=== PATIENT | female | born 1945 | race Caucasian/White ===

== ENCOUNTER → 2018-09-30 13:12 | Outpatient (CLI) | payer OTHER, SELFPAY ==
--- NOTE | 2018-09-30 | DI.MRI.S_ITS ---
PROCEDURE: MR KNEE LT WO CON INDICATIONS: UNILATERAL OSTEOARTHRITIS LEFT KNEE TECHNIQUE: Noncontrast sagittal PD fast spin echo and T2 fast spin echo with fat saturation, sagittal 3-D FLASH with fat saturation; coronal T1 spin echo and PD fast spin echo with fat saturation, and axial PD fast spin echo with fat saturation through the knee. COMPARISON: [facility], CR, XR KNEE ARTHRITIC SERIES LT, 03/09/2018, 8:26. [facility], CR, XR KNEE ARTHRITIC SERIES LT, 09/11/2018, 8:25. FINDINGS: Image quality: Excellent. Menisci: There is medial meniscal extrusion and complex tear involving the body of the medial meniscus. There is intrasubstance degeneration of the posterior horn the medial meniscus. The lateral meniscus demonstrates normal morphology and internal signal. The meniscal root ligaments appear intact. Cruciate ligaments: The anterior and posterior cruciate ligaments appear intact. Medial structures: The medial collateral ligament appears intact. The posterior oblique ligament, semimembranosus tendon insertions, oblique popliteal ligament, and meniscocapsular junction appear intact. Visualized portions of the pes anserinus tendons appear normal. No abnormal bursal fluid. Lateral structures: The lateral collateral ligament, long and short heads of the biceps femoris tendon appear intact. The popliteus tendon appears normal; the popliteofibular ligament appears intact. The posterosuperior and anteroinferior popliteomeniscal fascicles appear intact. The arcuate and fabellofibular ligaments appear intact, on either side of the lateral inferior geniculate artery. Iliotibial band appears normal. Anterior structures: The quadriceps and patellar tendons appear intact. Patellar alignment is normal. No femoral trochlear dysplasia or ventral trochlear prominence. No edema in the infrapatellar fat pad. Bones and cartilage: No bone marrow contusions or fractures. There is tricompartmental cartilage loss and significant degeneration, most pronounced in the medial and lateral femorotibial compartment. Mild reactive subchondral edema in the medial femoral condyle and medial tibial plateau likely secondary to [id number]. Joint space: There is physiologic knee joint fluid. No Hernandez's cyst. Normal appearing synovial plicae are incidentally noted. IMPRESSION: 1. Medial meniscal extrusion and complex tear of the body of the medial meniscus. 2. Tricompartmental cartilage loss, most pronounced in the medial femorotibial compartment. There is reactive subchondral edema in the medial femoral condyle and medial tibial plateau secondary to bone on bone. Dictated by: Setfan Barry M.D. on 09/30/2018 at 15:13 Approved by: Stefan Barry M.D. on 10/01/2018 at 10:01
== END ==
PROVIDERS: Visit Provider Orthopaedic Surgery
DX: S83.232A Complex tear of medial meniscus, current injury, left knee, initial encounter (principal); M17.12 Unilateral primary osteoarthritis, left knee; R60.0 Localized edema
CPT/HCPCS: 73721

== ENCOUNTER 2019-01-06 14:30 | Outpatient (RCR) | payer OTHER, SELFPAY ==
--- NOTE | 2018-10-22 15:05 | PT.OIE ---
Current Diagnoses Cystocele, midline (10/22/18) Past Surgical History Status post hysterectomy Provider Visit Care Team Role Provider Type Helio Chawla MD Primary Care Provider Non-Staff Specialty: Internal Medicine Address: [address] [place], [address] Email: Melissa Joseph MD Attending Provider Non-Staff Specialty: [employer] SI[employer] Address: [address] [place] [address], [id number] Email: Physical Therapy Initial Evaluation PT-OP-A Visit Information Start: 10/22/18 07:29 Freq: Status: Active Protocol: Document 10/22/18 09:45 AMB (Rec: 10/22/18 11:46 AMB [email or web address]) Out-Patient Physical Therapy Visit Information Visit Information Visit Type Initial Evaluation Visit Start Time 09:45 Visit Stop Time 10:30 Total Visit Minutes 45 Visit Number 1 PT-OP-B Current Condition Start: 10/22/18 07:29 Freq: Status: Active Protocol: Document 10/22/18 09:45 AMB (Rec: 10/22/18 11:46 AMB [email or web address]) Current Condition History of Current Condition Onset Date 2 years Current Complaints pelvic heaviness History of Current Condition Valerie had prolapse surgery in 2014 with vaginal hysterectomy . It worked well for a year or two, but then she was traveling around [place] and doing a lot of stairs, and felt the bulge come back. She tried a pessary but it didn't work for her. She is planning on having surgery in the summer, but is hoping to strengthen her pelvic floor so that she does not make her prolapse worse, and so that the surgery sticks better this go around. , vaginal deliveries with episiotomies, no symptoms with or soon after. Denies constipation, chronic cough. Personal Factors Other Personal Factors That May Effect History of back pain, takes Therapy/Recovery diuretic for blood pressure PT-OP-C Subjective Start: 10/22/18 07:29 Freq: Status: Active Protocol: Document 10/22/18 09:45 AMB (Rec: 10/22/18 11:46 AMB [email or web address]) Patient Questionnaires Pelvic Pain and Urgency/Frequency Patient Symptom Scale Pelvic Pain Score 8 PT-OP-I Pelvic Floor Start: 10/22/18 07:29 Freq: Status: Active Protocol: Document 10/22/18 09:45 AMB (Rec: 10/22/18 11:49 AMB [email or web address]) Pelvic Floor Assessment Urine Pelvic Floor Surgery Yes Urinary Symptoms Prolapse Falling Out Feeling/Heavy Other Leakage Causes Denies any leak issues Bowel Bowel Surgery No Bowel Movement Frequency 2x/day [place] Stool Chart Type 1-7 2 Pelvic Clock Pelvic Clock 12-3 Atrophy Pelvic Clock 3-6 Atrophy Pelvic Clock 6-9 Atrophy Pelvic Clock 9-12 Atrophy Prolapse Cystocele Grade 3 Rectocele Grade 1 Perineal Descent Resting Present Bearing Present SEMG (uV) Baseline 3.5 Quick Contraction 15 Recruitment Pattern Poor/Slow SEMG Stability of Rest Good Contraction Ability Voluntary Contraction Weak Voluntary Relaxation Weak Manual Muscle Testing Left 2 Manual Muscle Testing Right 2 Manual Muscle Testing Anterior 1 Manual Muscle Testing Posterior 3 Comments Pelvic Floor Comments Pt tends to cocontract her abdominal muscles with her pelvic floor. Difficult time keeping sensor in for biofeedback makes it less likely biofeedback muscular activity was accurate. PT-OP-Q Treatments Start: 10/22/18 07:29 Freq: Status: Active Protocol: Document 10/22/18 09:45 AMB (Rec: 10/22/18 13:31 AMB [email or web address]) Neuro Re-Education Treatment Other Activities 1 Details long holds/quick flicks Reps/Duration 2x10 ea hooklying Comments instruction with sEMG on using correct muscles, facilitating lift PT-OP-T Assessment and Plan Start: 10/22/18 07:29 Freq: Status: Active Protocol: Document 10/22/18 09:45 AMB (Rec: 10/22/18 13:45 AMB [email or web address]) Physical Therapy Assessment Rehab Potential Rehabilitation Potential Good Evaluation Complexity Number of Personal Factors/Comorbidities 1-2 Number of Body Systems Impaired 1-2 Clinical Presentation at Evaluation Stable Impairments Impairments Functional Activities Strength Goals Two Impairment pelvic floor heaviness Short Term Goal (STG) Valerie will walk for 15 minutes without a subjective feeling of pelvic heaviness. STG Duration 5 weeks Detention Goal (LTG) Valerie will be independent with a HEP to manage her cystocele . One Impairment pelvic floor strength Short Term Goal (STG) Valerie will increase her pelvic floor strength to 4/5 as tested in supine. STG Duration 5 weeks Manager Party Goal (LTG) Valerie will be able to contract her pelvic floor while in standing without compensating with her abdominals. LTG Duration 10 weeks Assessment Summary Assessment Valerie attends physical therapy with an increase in symptoms of prolapse. She has tried a pessary but did not find it helpful, and is going to be having another surgery in the summer, but is hoping to learn how to avoid making the prolapse worse given that she will be walking around [place] and that is what she thought made it worse after the last surgery. She does have weakness in her pelvic floor and had both a difficult time engaging levator ani as well as isolating the pelvic floor from her abdominals. She will benefit from physical therapy to improve her strength and reduce her symptoms from her cystocele. Physical Therapy Plan Frequency and Duration Frequency of Treatment 1x/Week Duration of Treatment 10 weeks Plan of Care Start Date 10/22/18 Plan of Care End Date 12/31/18 Therapeutic Interventions Therapeutic Interventions Home Exercise Program Manual Therapy Neuromuscular Re-education Self-Care/Home Management Therapeutic Activities Therapeutic Exercises Modalities Biofeedback Electric Stimulation Next Visit Focus/Plan Next Note Type Treatment Note Next Visit Plan Progress pelvic floor isolation in supine before progressing to more functional activity
--- NOTE | 2018-10-22 15:07 | PT.OPPOC ---
Current Diagnoses Cystocele, midline (10/22/18) Provider Visit Care Team Role Provider Type Helio Chawla MD Primary Care Provider Non-Staff Specialty: Internal Medicine Address: [address] [facility], [place], [address] Email: Melissa Joseph MD Attending Provider Non-Staff Specialty: STRIPPING [employer] Address: [address], [address] Email: Plan Of Care PT-OP-T Assessment and Plan Start: 10/22/18 07:29 Freq: Status: Active Protocol: Document 10/22/18 09:45 AMB (Rec: 10/22/18 13:45 AMB [email or web address]) Physical Therapy Assessment Rehab Potential Rehabilitation Potential Good Evaluation Complexity Number of Personal Factors/Comorbidities 1-2 Number of Body Systems Impaired 1-2 Clinical Presentation at Evaluation Stable Impairments Impairments Functional Activities Strength Goals Two Impairment pelvic floor heaviness Short Term Goal (STG) Valerie will walk for 15 minutes without a subjective feeling of pelvic heaviness. STG Duration 5 weeks Transfer Clerk Goal (LTG) Valerie will be independent with a HEP to manage her cystocele . One Impairment pelvic floor strength Short Term Goal (STG) Valerie will increase her pelvic floor strength to 4/5 as tested in supine. STG Duration 5 weeks Snf Goal (LTG) Valerie will be able to contract her pelvic floor while in standing without compensating with her abdominals. LTG Duration 10 weeks Assessment Summary Assessment Valerie attends physical therapy with an increase in symptoms of prolapse. She has tried a pessary but did not find it helpful, and is going to be having another surgery in the summer, but is hoping to learn how to avoid making the prolapse worse given that she will be walking around [place] and that is what she thought made it worse after the last surgery. She does have weakness in her pelvic floor and had both a difficult time engaging levator ani as well as isolating the pelvic floor from her abdominals. She will benefit from physical therapy to improve her strength and reduce her symptoms from her cystocele. Physical Therapy Plan Frequency and Duration Frequency of Treatment 1x/Week Duration of Treatment 10 weeks Plan of Care Start Date 10/22/18 Plan of Care End Date 12/31/18 Therapeutic Interventions Therapeutic Interventions Home Exercise Program Manual Therapy Neuromuscular Re-education Self-Care/Home Management Therapeutic Activities Therapeutic Exercises Modalities Biofeedback Electric Stimulation Next Visit Focus/Plan Next Note Type Treatment Note Next Visit Plan Progress pelvic floor isolation in supine before progressing to more functional activity Plan of Care Dates Plan of Care Start Date 10/22/18 Plan of Care End Date 12/31/18 Please Sign and Return: I have reviewed this Plan of Care and certify that the skilled therapy services above are required to meet the patient?s needs. Physician Signature Date Printed Name and Credentials Clinical Instructor Signature Printed Name and Credentials
--- NOTE | 2018-10-30 12:16 | PT.OTN ---
Current Diagnoses Cystocele, midline (10/30/18) Physical Therapy Treatment Note PT-OP-A Visit Information Start: 10/22/18 07:29 Freq: Status: Active Protocol: Document 10/30/18 10:00 BS (Rec: 10/30/18 12:09 BS [email or web address]) Out-Patient Physical Therapy Visit Information Visit Information Visit Type Treatment Note Visit Start Time 09:50 Visit Stop Time 10:35 Total Visit Minutes 45 Visit Number 2 PT-OP-B Current Condition Start: 10/22/18 07:29 Freq: Status: Active Protocol: Document 10/22/18 09:45 AMB (Rec: 10/22/18 11:46 AMB [email or web address]) Current Condition History of Current Condition Onset Date 2 years Current Complaints pelvic heaviness History of Current Condition Valerie had prolapse surgery in 2014 with vaginal hysterectomy . It worked well for a year or two, but then she was traveling around [place] and doing a lot of stairs, and felt the bulge come back. She tried a pessary but it didn't work for her. She is planning on having surgery in the summer, but is hoping to strengthen her pelvic floor so that she does not make her prolapse worse, and so that the surgery sticks better this go around. , vaginal deliveries with episiotomies, no symptoms with or soon after. Denies constipation, chronic cough. Personal Factors Other Personal Factors That May Effect History of back pain, takes Therapy/Recovery diurectic for blood pressure PT-OP-C Subjective Start: 10/22/18 07:29 Freq: Status: Active Protocol: Document 10/30/18 10:00 BS (Rec: 10/30/18 12:09 BS [email or web address]) OP-PT Subjective Patient Comments Patient Comments Pt reports she has been compliant with HEP and is focusing on isolating pelvic floor. PT-OP-I Pelvic Floor Start: 10/22/18 07:29 Freq: Status: Active Protocol: Document 10/22/18 09:45 AMB (Rec: 10/22/18 11:49 AMB [email or web address]) Pelvic Floor Assessment Urine Pelvic Floor Surgery Yes Urinary Symptoms Prolapse Falling Out Feeling/Heavy Other Leakage Causes Denies any leak issues Bowel Bowel Surgery No Bowel Movement Frequency 2x/day [place] Stool Chart Type 1-7 2 Pelvic Clock Pelvic Clock 12-3 Atrophy Pelvic Clock 3-6 Atrophy Pelvic Clock 6-9 Atrophy Pelvic Clock 9-12 Atrophy Prolapse Cystocele Grade 3 Rectocele Grade 1 Perineal Descent Resting Present Bearing Present SEMG (uV) Baseline 3.5 Quick Contraction 15 Recruitment Pattern Poor/Slow SEMG Stability of Rest Good Contraction Ability Voluntary Contraction Weak Voluntary Relaxation Weak Manual Muscle Testing Left 2 Manual Muscle Testing Right 2 Manual Muscle Testing Anterior 1 Manual Muscle Testing Posterior 3 Comments Pelvic Floor Comments Pt tends to cocontract her abdominal muscles with her pelvic floor. Difficult time keeping sensor in for biofeedback makes it less likely biofeedback muscular activitiy was accurate. PT-OP-Q Treatments Start: 10/22/18 07:29 Freq: Status: Active Protocol: Document 10/30/18 10:00 BS (Rec: 10/30/18 12:09 BS [email or web address]) Therapeutic Exercises Supine Exercises 2 Supine Exercise Name Supine clamshell Resistance #3 band Reps/Minutes x15 Comments hooklying. VCs for pelvic floor contraction 1 Supine Exercise Name Hip adduction squeeze with small ball Reps/Minutes x15 wtih 3-5 sec hold. Comments Hooklying. VCs for pelvic floor contraction Neuro Re-Education Treatment Other Activities 1 Details quick flicks, 5W 10R, 10W 10R Reps/Duration 2x10 ea hooklying Comments sEMG with visual feedback for pelvic floor contraction. VCs to reduce abdominal tension. PT-OP-T Assessment and Plan Start: 10/22/18 07:29 Freq: Status: Active Protocol: Document 10/30/18 10:00 BS (Rec: 10/30/18 12:09 BS [email or web address]) Physical Therapy Assessment Assessment Summary Assessment Valerie reports that she has been compliant with HEP for pelvic floor strengthening. She tolerated s EMG today and core stabilization exercises in supine. Prolonged supine position increased LBP toward end of sesion. Physical Therapy Plan Next Visit Focus/Plan Next Note Type Treatment Note Next Visit Plan Pelvic floor progression in quadruped position.
--- NOTE | 2018-11-06 15:10 | PT.OTN ---
Current Diagnoses Cystocele, midline (11/06/18) Physical Therapy Treatment Note PT-OP-A Visit Information Start: 10/22/18 07:29 Freq: Status: Active Protocol: Document 11/06/18 09:49 BS (Rec: 11/06/18 09:55 BS [id number]) Out-Patient Physical Therapy Visit Information Visit Information Visit Type Treatment Note Visit Start Time 09:45 Visit Stop Time 10:30 Total Visit Minutes 45 Visit Number 3 PT-OP-B Current Condition Start: 10/22/18 07:29 Freq: Status: Active Protocol: Document 10/22/18 09:45 AMB (Rec: 10/22/18 11:46 AMB [email or web address]) Current Condition History of Current Condition Onset Date 2 years Current Complaints pelvic heaviness History of Current Condition Valerie had prolapse surgery in 2014 with vaginal hysterectomy . It worked well for a year or two, but then she was traveling around [place] and doing a lot of stairs, and felt the bulge come back. She tried a pessary but it didn't work for her. She is planning on having surgery in the summer, but is hoping to strengthen her pelvic floor so that she does not make her prolapse worse, and so that the surgery sticks better this go around. , vaginal deliveries with episiotomies, no symptoms with or soon after. Denies constipation, chronic cough. Personal Factors Other Personal Factors That May Effect History of back pain, takes Therapy/Recovery diurectic for blood pressure PT-OP-C Subjective Start: 10/22/18 07:29 Freq: Status: Active Protocol: Document 11/06/18 09:49 BS (Rec: 11/06/18 09:55 BS [id number]) OP-PT Subjective Patient Comments Patient Comments Pt has been doing her exercises, needs a new band but bought a ball for hip adduction squeezes. Still having pelvic heaviness especially with standing. PT-OP-I Pelvic Floor Start: 10/22/18 07:29 Freq: Status: Active Protocol: Document 10/22/18 09:45 AMB (Rec: 10/22/18 11:49 AMB [email or web address]) Pelvic Floor Assessment Urine Pelvic Floor Surgery Yes Urinary Symptoms Prolapse Falling Out Feeling/Heavy Other Leakage Causes Denies any leak issues Bowel Bowel Surgery No Bowel Movement Frequency 2x/day [place] Stool Chart Type 1-7 2 Pelvic Clock Pelvic Clock 12-3 Atrophy Pelvic Clock 3-6 Atrophy Pelvic Clock 6-9 Atrophy Pelvic Clock 9-12 Atrophy Prolapse Cystocele Grade 3 Rectocele Grade 1 Perineal Descent Resting Present Bearing Present SEMG (uV) Baseline 3.5 Quick Contraction 15 Recruitment Pattern Poor/Slow SEMG Stability of Rest Good Contraction Ability Voluntary Contraction Weak Voluntary Relaxation Weak Manual Muscle Testing Left 2 Manual Muscle Testing Right 2 Manual Muscle Testing Anterior 1 Manual Muscle Testing Posterior 3 Comments Pelvic Floor Comments Pt tends to cocontract her abdominal muscles with her pelvic floor. Difficult time keeping sensor in for biofeedback makes it less likely biofeedback muscular activitiy was accurate. PT-OP-Q Treatments Start: 10/22/18 07:29 Freq: Status: Active Protocol: Document 11/06/18 09:49 BS (Rec: 11/06/18 09:55 BS [id number]) Therapeutic Exercises Sitting Exercises 1 Sitting Exercise Name Roll in/out Resistance #3 band, small red ball Reps/Minutes x20 each Comments VCs pelvic floor contraction Neuro Re-Education Treatment Other Activities 1 Details quick flicks, 5W 10R, 10W 10R Reps/Duration x10 ea hooklying Comments sEMG with visual feedback for pelvic floor contraction. PT-OP-T Assessment and Plan Start: 10/22/18 07:29 Freq: Status: Active Protocol: Document 11/06/18 09:49 BS (Rec: 11/06/18 12:54 BS [email or web address]) Physical Therapy Assessment Assessment Summary Assessment Continuation of sEMG and pelvic floor strengthening, progressed to sitting position today edge of mat. Pt will be seen for 2 more visits before vacation to [facility]. Physical Therapy Plan Next Visit Focus/Plan Next Note Type Treatment Note Next Visit Plan Progress pelvic floor strengthening as able to standing and dynamic exercises with lifting in preparation for vacation.
--- NOTE | 2018-11-13 11:58 | PT.OTN ---
Current Diagnoses Cystocele, midline (11/13/18) Physical Therapy Treatment Note PT-OP-A Visit Information Start: 10/22/18 07:29 Freq: Status: Active Protocol: Document 11/13/18 10:35 BS (Rec: 11/13/18 11:39 BS [id number]) Out-Patient Physical Therapy Visit Information Visit Information Visit Type Treatment Note Visit Start Time 09:45 Visit Stop Time 10:30 Total Visit Minutes 45 Visit Number 4 PT-OP-B Current Condition Start: 10/22/18 07:29 Freq: Status: Active Protocol: Document 10/22/18 09:45 AMB (Rec: 10/22/18 11:46 AMB [email or web address]) Current Condition History of Current Condition Onset Date 2 years Current Complaints pelvic heaviness History of Current Condition Valerie had prolapse surgery in 2014 with vaginal hysterectomy . It worked well for a year or two, but then she was traveling around [place] and doing a lot of stairs, and felt the bulge come back. She tried a pessary but it didn't work for her. She is planning on having surgery in the summer, but is hoping to strengthen her pelvic floor so that she does not make her prolapse worse, and so that the surgery sticks better this go around. , vaginal deliveries with episiotomies, no symptoms with or soon after. Denies constipation, chronic cough. Personal Factors Other Personal Factors That May Effect History of back pain, takes Therapy/Recovery diurectic for blood pressure PT-OP-C Subjective Start: 10/22/18 07:29 Freq: Status: Active Protocol: Document 11/13/18 10:35 BS (Rec: 11/13/18 11:39 BS [id number]) OP-PT Subjective Patient Comments Patient Comments Everything is going well, I have been doing the exercises and paying more attention to engaging pelvic floor throughout day. PT-OP-I Pelvic Floor Start: 10/22/18 07:29 Freq: Status: Active Protocol: Document 10/22/18 09:45 AMB (Rec: 10/22/18 11:49 AMB [email or web address]) Pelvic Floor Assessment Urine Pelvic Floor Surgery Yes Urinary Symptoms Prolapse Falling Out Feeling/Heavy Other Leakage Causes Denies any leak issues Bowel Bowel Surgery No Bowel Movement Frequency 2x/day [place] Stool Chart Type 1-7 2 Pelvic Clock Pelvic Clock 12-3 Atrophy Pelvic Clock 3-6 Atrophy Pelvic Clock 6-9 Atrophy Pelvic Clock 9-12 Atrophy Prolapse Cystocele Grade 3 Rectocele Grade 1 Perineal Descent Resting Present Bearing Present SEMG (uV) Baseline 3.5 Quick Contraction 15 Recruitment Pattern Poor/Slow SEMG Stability of Rest Good Contraction Ability Voluntary Contraction Weak Voluntary Relaxation Weak Manual Muscle Testing Left 2 Manual Muscle Testing Right 2 Manual Muscle Testing Anterior 1 Manual Muscle Testing Posterior 3 Comments Pelvic Floor Comments Pt tends to cocontract her abdominal muscles with her pelvic floor. Difficult time keeping sensor in for biofeedback makes it less likely biofeedback muscular activitiy was accurate. PT-OP-Q Treatments Start: 10/22/18 07:29 Freq: Status: Active Protocol: Document 11/13/18 10:35 BS (Rec: 11/13/18 11:39 BS [id number]) Therapeutic Exercises Sitting Exercises 1 Sitting Exercise Name Roll in/out Resistance #3 band, small red ball Reps/Minutes x20 each Comments VCs pelvic floor contraction Standing Exercises 2 Standing Exercise Name Hip abduction Side bilateral Reps/Minutes x12 each Comments VCs pelvic floor contraction 1 Standing Exercise Name Mini Squats Reps/Minutes x10 Comments VCs pelvic floor contraction and correct form Neuro Re-Education Treatment Other Activities 1 Details quick flicks, 5W 10R, 10W 10R Reps/Duration x15 ea hooklying Comments sEMG with visual feedback for pelvic floor contraction. PT-OP-T Assessment and Plan Start: 10/22/18 07:29 Freq: Status: Active Protocol: Document 11/13/18 10:35 BS (Rec: 11/13/18 11:39 BS [id number]) Physical Therapy Assessment Assessment Summary Assessment Continued biofeedback for pelvic floor strengthening and neuromuscular re-education in sitting. Progressed to standing squats and hip abduction with pt reporting less feelings of heaviness with activation of pelvic floor. Pt has 1 visit remaining before vascation to [place]. Physical Therapy Plan Next Visit Focus/Plan Next Note Type Treatment Note Next Visit Plan Pt tolerated progression of pelvic floor exercises in standing. Add functional crate lifts next visit to mimic carrying of luggage.
--- NOTE | 2018-11-20 14:18 | PT.OTN ---
Current Diagnoses Cystocele, midline (11/20/18) Physical Therapy Treatment Note PT-OP-A Visit Information Start: 10/22/18 07:29 Freq: Status: Active Protocol: Document 11/20/18 10:35 BS (Rec: 11/20/18 09:51 BS [id number]) Out-Patient Physical Therapy Visit Information Visit Information Visit Type Treatment Note Visit Start Time 09:47 Visit Stop Time 10:30 Total Visit Minutes 43 Visit Number 5 PT-OP-B Current Condition Start: 10/22/18 07:29 Freq: Status: Active Protocol: Document 10/22/18 09:45 AMB (Rec: 10/22/18 11:46 AMB [email or web address]) Current Condition History of Current Condition Onset Date 2 years Current Complaints pelvic heaviness History of Current Condition Valerie had prolapse surgery in 2014 with vaginal hysterectomy . It worked well for a year or two, but then she was traveling around [place] and doing a lot of stairs, and felt the bulge come back. She tried a pessary but it didn't work for her. She is planning on having surgery in the summer, but is hoping to strengthen her pelvic floor so that she does not make her prolapse worse, and so that the surgery sticks better this go around. , vaginal deliveries with episiotomies, no symptoms with or soon after. Denies constipation, chronic cough. Personal Factors Other Personal Factors That May Effect History of back pain, takes Therapy/Recovery diurectic for blood pressure PT-OP-C Subjective Start: 10/22/18 07:29 Freq: Status: Active Protocol: Document 11/20/18 10:35 BS (Rec: 11/20/18 10:26 BS [id number]) OP-PT Subjective Patient Comments Patient Comments Pt reports she has been doing exercises and preparing for vacation to [place]. She feels confident with continuing exercises when on vacation. PT-OP-I Pelvic Floor Start: 10/22/18 07:29 Freq: Status: Active Protocol: Document 10/22/18 09:45 AMB (Rec: 10/22/18 11:49 AMB [email or web address]) Pelvic Floor Assessment Urine Pelvic Floor Surgery Yes Urinary Symptoms Prolapse Falling Out Feeling/Heavy Other Leakage Causes Denies any leak issues Bowel Bowel Surgery No Bowel Movement Frequency 2x/day [place] Stool Chart Type 1-7 2 Pelvic Clock Pelvic Clock 12-3 Atrophy Pelvic Clock 3-6 Atrophy Pelvic Clock 6-9 Atrophy Pelvic Clock 9-12 Atrophy Prolapse Cystocele Grade 3 Rectocele Grade 1 Perineal Descent Resting Present Bearing Present SEMG (uV) Baseline 3.5 Quick Contraction 15 Recruitment Pattern Poor/Slow SEMG Stability of Rest Good Contraction Ability Voluntary Contraction Weak Voluntary Relaxation Weak Manual Muscle Testing Left 2 Manual Muscle Testing Right 2 Manual Muscle Testing Anterior 1 Manual Muscle Testing Posterior 3 Comments Pelvic Floor Comments Pt tends to cocontract her abdominal muscles with her pelvic floor. Difficult time keeping sensor in for biofeedback makes it less likely biofeedback muscular activitiy was accurate. PT-OP-Q Treatments Start: 10/22/18 07:29 Freq: Status: Active Protocol: Document 11/20/18 10:35 BS (Rec: 11/20/18 10:26 BS [id number]) Therapeutic Exercises Sitting Exercises 1 Sitting Exercise Name Roll in Resistance small red ball Reps/Minutes x20 each Comments VCs pelvic floor contraction Standing Exercises 2 Standing Exercise Name Hip abduction Side bilateral Reps/Minutes x12 each Comments VCs pelvic floor contraction 1 Standing Exercise Name Mini Squats Equipment Used no weight Reps/Minutes x10 Comments VCs pelvic floor contraction and correct form Therapeutic Activity Therapeutic Activity 2 Name Crate Lift and Carry Reps/Minutes x5 Comments from ground to countertop. 10# pelvic floor contraction and TA bracing. 1 Name Crate Lift Reps/Minutes x10 each Comments 10#, 15# with pelvic floor contraction and TA bracing. From floor to waist level. PT-OP-T Assessment and Plan Start: 10/22/18 07:29 Freq: Status: Active Protocol: Document 11/20/18 10:35 BS (Rec: 11/20/18 10:26 BS [id number]) Physical Therapy Assessment Assessment Summary Assessment Session consisted of more functional lifting and carrying activities with pelvic floor contractions in preparation for vacation to [place]. She will have surgery in February for prolapse. Physical Therapy Plan Next Visit Focus/Plan Next Note Type Treatment Note Next Visit Plan Re-assess pelvic floor activation with biofeedback. Pt plans to schedule 1-2 visits after vacation just prior to surgery.
--- NOTE | 2018-11-27 11:01 | PT.OTN ---
Current Diagnoses Cystocele, midline (11/27/18) Physical Therapy Treatment Note PT-OP-A Visit Information Start: 10/22/18 07:29 Freq: Status: Active Protocol: Document 11/27/18 10:44 BS (Rec: 11/27/18 10:52 BS [email or web address]) Out-Patient Physical Therapy Visit Information Visit Information Visit Type Treatment Note Visit Start Time 09:45 Visit Stop Time 10:30 Total Visit Minutes 45 Visit Number 6 PT-OP-B Current Condition Start: 10/22/18 07:29 Freq: Status: Active Protocol: Document 10/22/18 09:45 AMB (Rec: 10/22/18 11:46 AMB [email or web address]) Current Condition History of Current Condition Onset Date 2 years Current Complaints pelvic heaviness History of Current Condition Valerie had prolapse surgery in 2014 with vaginal hysterectomy . It worked well for a year or two, but then she was traveling around [place] and doing a lot of stairs, and felt the bulge come back. She tried a pessary but it didn't work for her. She is planning on having surgery in the summer, but is hoping to strengthen her pelvic floor so that she does not make her prolapse worse, and so that the surgery sticks better this go around. , vaginal deliveries with episiotomies, no symptoms with or soon after. Denies constipation, chronic cough. Personal Factors Other Personal Factors That May Effect History of back pain, takes Therapy/Recovery diurectic for blood pressure PT-OP-C Subjective Start: 10/22/18 07:29 Freq: Status: Active Protocol: Document 11/27/18 10:44 BS (Rec: 11/27/18 10:52 BS [email or web address]) OP-PT Subjective Patient Comments Patient Comments Pt feels confident with pelvic floor exercises and is states she is more aware of doing them with functional daily activities. PT-OP-I Pelvic Floor Start: 10/22/18 07:29 Freq: Status: Active Protocol: Document 10/22/18 09:45 AMB (Rec: 10/22/18 11:49 AMB [email or web address]) Pelvic Floor Assessment Urine Pelvic Floor Surgery Yes Urinary Symptoms Prolapse Falling Out Feeling/Heavy Other Leakage Causes Denies any leak issues Bowel Bowel Surgery No Bowel Movement Frequency 2x/day [place] Stool Chart Type 1-7 2 Pelvic Clock Pelvic Clock 12-3 Atrophy Pelvic Clock 3-6 Atrophy Pelvic Clock 6-9 Atrophy Pelvic Clock 9-12 Atrophy Prolapse Cystocele Grade 3 Rectocele Grade 1 Perineal Descent Resting Present Bearing Present SEMG (uV) Baseline 3.5 Quick Contraction 15 Recruitment Pattern Poor/Slow SEMG Stability of Rest Good Contraction Ability Voluntary Contraction Weak Voluntary Relaxation Weak Manual Muscle Testing Left 2 Manual Muscle Testing Right 2 Manual Muscle Testing Anterior 1 Manual Muscle Testing Posterior 3 Comments Pelvic Floor Comments Pt tends to cocontract her abdominal muscles with her pelvic floor. Difficult time keeping sensor in for biofeedback makes it less likely biofeedback muscular activitiy was accurate. PT-OP-Q Treatments Start: 10/22/18 07:29 Freq: Status: Active Protocol: Document 11/27/18 10:44 BS (Rec: 11/27/18 10:52 BS [email or web address]) Therapeutic Exercises Sitting Exercises 2 Sitting Exercise Name Roll out Equipment Used #3 band Reps/Minutes x20 Comments Pelvic floor contractions 1 Sitting Exercise Name Roll in Resistance small red ball Reps/Minutes x20 each Comments VCs pelvic floor contraction Therapeutic Activity Therapeutic Activity 3 Name Step Up/down Reps/Minutes 4 step Comments Pelvic floor contractions, no UE support. 2 Name Crate Lift and Carry Reps/Minutes x5 Comments from ground to countertop. 10# pelvic floor contraction and TA bracing. 1 Name Crate Lift Reps/Minutes x10 each Comments 10# with pelvic floor contraction and TA bracing. From floor to waist level. Neuro Re-Education Treatment Other Activities 1 Details quick flicks, 5W 10R, 10W 10R Reps/Duration x15 ea hooklying Comments sEMG with visual feedback for pelvic floor contraction. PT-OP-T Assessment and Plan Start: 10/22/18 07:29 Freq: Status: Active Protocol: Document 11/27/18 10:44 BS (Rec: 11/27/18 10:52 BS [email or web address]) Physical Therapy Plan Next Visit Focus/Plan Next Note Type Treatment Note Next Visit Plan Pt is going on long vacation to [place] next week and plans to have 1 more visit when returning prior to surgery in February.
--- NOTE | 2019-01-06 16:00 | PT.OPPOC ---
Current Diagnoses Cystocele, midline (01/06/19) Provider Visit Care Team Role Provider Type Helio Chawla MD Primary Care Provider Non-Staff Specialty: Internal Medicine Address: [address] [place], [address] Email: Melissa Joseph MD Attending Provider Non-Staff Specialty: ARTISTS' BOOKING REPRESENTATIVE Address: [address], [address] Email: Plan Of Care PT-OP-T Assessment and Plan Start: 10/22/18 07:29 Freq: Status: Active Protocol: Document 01/06/19 14:30 AMB (Rec: 01/07/19 08:39 AMB [email or web address]) Physical Therapy Assessment Goals Two Impairment pelvic floor heaviness Short Term Goal (STG) Valerie will walk for 15 minutes without a subjective feeling of pelvic heaviness. STG Duration MET Fdc Goal (LTG) Valerie will be independent with a HEP to manage her cystocele . LTG Duration MET One Impairment pelvic floor strength Short Term Goal (STG) Valerie will increase her pelvic floor strength to 4/5 as tested in supine. STG Duration 5 weeks Fdc Goal (LTG) Valerie will be able to contract her pelvic floor while in standing without compensating with her abdominals. LTG Duration MET Assessment Summary Assessment Valerie now has a better understanding of how to contract her pelvic floor. Instructed her in importance of pressure management now and after surgery, importance of avoiding high pressure activities- straining sit ups, did encourage her in core stabilization exercises. Physical Therapy Plan Frequency and Duration Frequency of Treatment 1x/Week Duration of Treatment 1 week Plan of Care Start Date 01/06/19 Plan of Care End Date 01/13/19 Discharge Physical Therapy Discharge Reasons Goals Met Discharge Comments Pt is planning on having surgery in February. If she needs to return post-op she would need a new referral. Plan of Care Dates Plan of Care Start Date 01/06/19 Plan of Care End Date 01/13/19 Please Sign and Return: I have reviewed this Plan of Care and certify that the skilled therapy services above are required to meet the patient?s needs. Physician Signature Date Printed Name and Credentials Clinical Instructor Signature Printed Name and Credentials
--- NOTE | 2019-01-06 16:05 | PT.OTN ---
Current Diagnoses Cystocele, midline (01/06/19) Physical Therapy Treatment Note PT-OP-A Visit Information Start: 10/22/18 07:29 Freq: Status: Active Protocol: Document 01/06/19 14:30 AMB (Rec: 01/06/19 15:07 AMB [id number]) Out-Patient Physical Therapy Visit Information Visit Information Visit Type Treatment Note Visit Start Time 14:30 Visit Stop Time 15:15 Total Visit Minutes 45 Visit Number 7 PT-OP-B Current Condition Start: 10/22/18 07:29 Freq: Status: Active Protocol: Document 10/22/18 09:45 AMB (Rec: 10/22/18 11:46 AMB [email or web address]) Current Condition History of Current Condition Onset Date 2 years Current Complaints pelvic heaviness History of Current Condition Valerie had prolapse surgery in 2014 with vaginal hysterectomy . It worked well for a year or two, but then she was traveling around [place] and doing a lot of stairs, and felt the bulge come back. She tried a pessary but it didn't work for her. She is planning on having surgery in the summer, but is hoping to strengthen her pelvic floor so that she does not make her prolapse worse, and so that the surgery sticks better this go around. , vaginal deliveries with episiotomies, no symptoms with or soon after. Denies constipation, chronic cough. Personal Factors Other Personal Factors That May Effect History of back pain, takes Therapy/Recovery diurectic for blood pressure PT-OP-C Subjective Start: 10/22/18 07:29 Freq: Status: Active Protocol: Document 01/06/19 14:30 AMB (Rec: 01/06/19 15:07 AMB [id number]) OP-PT Subjective Patient Comments Patient Comments Pt returns from her trip to [facility]. PT-OP-I Pelvic Floor Start: 10/22/18 07:29 Freq: Status: Active Protocol: Document 10/22/18 09:45 AMB (Rec: 10/22/18 11:49 AMB [email or web address]) Pelvic Floor Assessment Urine Pelvic Floor Surgery Yes Urinary Symptoms Prolapse Falling Out Feeling/Heavy Other Leakage Causes Denies any leak issues Bowel Bowel Surgery No Bowel Movement Frequency 2x/day [place] Stool Chart Type 1-7 2 Pelvic Clock Pelvic Clock 12-3 Atrophy Pelvic Clock 3-6 Atrophy Pelvic Clock 6-9 Atrophy Pelvic Clock 9-12 Atrophy Prolapse Cystocele Grade 3 Rectocele Grade 1 Perineal Descent Resting Present Bearing Present SEMG (uV) Baseline 3.5 Quick Contraction 15 Recruitment Pattern Poor/Slow SEMG Stability of Rest Good Contraction Ability Voluntary Contraction Weak Voluntary Relaxation Weak Manual Muscle Testing Left 2 Manual Muscle Testing Right 2 Manual Muscle Testing Anterior 1 Manual Muscle Testing Posterior 3 Comments Pelvic Floor Comments Pt tends to cocontract her abdominal muscles with her pelvic floor. Difficult time keeping sensor in for biofeedback makes it less likely biofeedback muscular activitiy was accurate. PT-OP-Q Treatments Start: 10/22/18 07:29 Freq: Status: Active Protocol: Document 01/06/19 14:30 AMB (Rec: 01/07/19 08:39 AMB [email or web address]) Therapeutic Exercises Supine Exercises 3 Supine Exercise Name LTR Reps/Minutes 10 2 Supine Exercise Name supine march Reps/Minutes 10 Comments with TrA and pelvic floor 1 Supine Exercise Name supine 90-90 bilat Reps/Minutes 10 Neuro Re-Education Treatment Other Activities 1 Details quick flicks, 5W 10R, 10W 10R Reps/Duration x15 ea hooklying Comments sEMG with visual feedback for pelvic floor contraction. PT-OP-T Assessment and Plan Start: 10/22/18 07:29 Freq: Status: Active Protocol: Document 01/06/19 14:30 AMB (Rec: 01/07/19 08:39 AMB [email or web address]) Physical Therapy Assessment Goals Two Impairment pelvic floor heaviness Short Term Goal (STG) Valerie will walk for 15 minutes without a subjective feeling of pelvic heaviness. STG Duration MET Wastewater Project Engineer Goal (LTG) Valerie will be independent with a HEP to manage her cystocele . LTG Duration MET One Impairment pelvic floor strength Short Term Goal (STG) Valerie will increase her pelvic floor strength to 4/5 as tested in supine. STG Duration 5 weeks Wastewater Project Engineer Goal (LTG) Valerie will be able to contract her pelvic floor while in standing without compensating with her abdominals. LTG Duration MET Assessment Summary Assessment Valerie now has a better understanding of how to contract her pelvic floor. Instructed her in importance of pressure management now and after surgery, importance of avoiding high pressure activities- straining sit ups, did encourage her in core stabilization exercises. Physical Therapy Plan Frequency and Duration Frequency of Treatment 1x/Week Duration of Treatment 1 week Plan of Care Start Date 01/06/19 Plan of Care End Date 01/13/19 Discharge Physical Therapy Discharge Reasons Goals Met Discharge Comments Pt is planning on having surgery in February. If she needs to return post-op she would need a new referral.
--- NOTE | 2019-01-06 16:10 | PT.OPDS ---
Current Diagnoses Cystocele, midline (01/06/19) Provider Visit Care Team Role Provider Type Helio Chawla MD Primary Care Provider Non-Staff Specialty: Internal Medicine Address: [address] [place], [address] Email: Melissa Joseph MD Attending Provider Non-Staff Specialty: STRAP BUCKLER Address: [address] [place] [address], [address] Email: Visit Number Visit Number 7 Discharge Summary PT-OP-B Current Condition Start: 10/22/18 07:29 Freq: Status: Active Protocol: Document 10/22/18 09:45 AMB (Rec: 10/22/18 11:46 AMB [email or web address]) Current Condition History of Current Condition Onset Date 2 years Current Complaints pelvic heaviness History of Current Condition Valerie had prolapse surgery in 2014 with vaginal hysterectomy . It worked well for a year or two, but then she was traveling around [place] and doing a lot of stairs, and felt the bulge come back. She tried a pessary but it didn't work for her. She is planning on having surgery in the summer, but is hoping to strengthen her pelvic floor so that she does not make her prolapse worse, and so that the surgery sticks better this go around. , vaginal deliveries with episiotomies, no symptoms with or soon after. Denies constipation, chronic cough. Personal Factors Other Personal Factors That May Effect History of back pain, takes Therapy/Recovery diurectic for blood pressure PT-OP-C Subjective Start: 10/22/18 07:29 Freq: Status: Active Protocol: Document 01/06/19 14:30 AMB (Rec: 01/06/19 15:07 AMB [id number]) OP-PT Subjective Patient Comments Patient Comments Pt returns from her trip to [facility]. PT-OP-I Pelvic Floor Start: 10/22/18 07:29 Freq: Status: Active Protocol: Document 10/22/18 09:45 AMB (Rec: 10/22/18 11:49 AMB [email or web address]) Pelvic Floor Assessment Urine Pelvic Floor Surgery Yes Urinary Symptoms Prolapse Falling Out Feeling/Heavy Other Leakage Causes Denies any leak issues Bowel Bowel Surgery No Bowel Movement Frequency 2x/day [place] Stool Chart Type 1-7 2 Pelvic Clock Pelvic Clock 12-3 Atrophy Pelvic Clock 3-6 Atrophy Pelvic Clock 6-9 Atrophy Pelvic Clock 9-12 Atrophy Prolapse Cystocele Grade 3 Rectocele Grade 1 Perineal Descent Resting Present Bearing Present SEMG (uV) Baseline 3.5 Quick Contraction 15 Recruitment Pattern Poor/Slow SEMG Stability of Rest Good Contraction Ability Voluntary Contraction Weak Voluntary Relaxation Weak Manual Muscle Testing Left 2 Manual Muscle Testing Right 2 Manual Muscle Testing Anterior 1 Manual Muscle Testing Posterior 3 Comments Pelvic Floor Comments Pt tends to cocontract her abdominal muscles with her pelvic floor. Difficult time keeping sensor in for biofeedback makes it less likely biofeedback muscular activitiy was accurate. PT-OP-T Assessment and Plan Start: 10/22/18 07:29 Freq: Status: Active Protocol: Document 01/06/19 14:30 AMB (Rec: 01/07/19 08:39 AMB [email or web address]) Physical Therapy Assessment Goals Two Impairment pelvic floor heaviness Short Term Goal (STG) Valerie will walk for 15 minutes without a subjective feeling of pelvic heaviness. STG Duration MET Longterm Goal (LTG) Valerie will be independent with a HEP to manage her cystocele . LTG Duration MET One Impairment pelvic floor strength Short Term Goal (STG) Valerie will increase her pelvic floor strength to 4/5 as tested in supine. STG Duration 5 weeks Promotions Executive Producer Goal (LTG) Valerie will be able to contract her pelvic floor while in standing without compensating with her abdominals. LTG Duration MET Assessment Summary Assessment Valerie now has a better understanding of how to contract her pelvic floor. Instructed her in importance of pressure management now and after surgery, importance of avoiding high pressure activities- straining sit ups, did encourage her in core stabilization exercises. Physical Therapy Plan Frequency and Duration Frequency of Treatment 1x/Week Duration of Treatment 1 week Plan of Care Start Date 01/06/19 Plan of Care End Date 01/13/19 Discharge Physical Therapy Discharge Reasons Goals Met Discharge Comments Pt is planning on having surgery in February. If she needs to return post-op she would need a new referral.
--- NOTE | 2019-01-07 08:39 | PT.OTN ---
Current Diagnoses Cystocele, midline (01/06/19) Physical Therapy Treatment Note PT-OP-A Visit Information Start: 10/22/18 07:29 Freq: Status: Active Protocol: Document 01/06/19 14:30 AMB (Rec: 01/06/19 15:07 AMB [id number]) Out-Patient Physical Therapy Visit Information Visit Information Visit Type Treatment Note Visit Start Time 14:30 Visit Stop Time 15:15 Total Visit Minutes 45 Visit Number 7 PT-OP-B Current Condition Start: 10/22/18 07:29 Freq: Status: Active Protocol: Document 10/22/18 09:45 AMB (Rec: 10/22/18 11:46 AMB [email or web address]) Current Condition History of Current Condition Onset Date 2 years Current Complaints pelvic heaviness History of Current Condition Valerie had prolapse surgery in 2014 with vaginal hysterectomy . It worked well for a year or two, but then she was traveling around [place] and doing a lot of stairs, and felt the bulge come back. She tried a pessary but it didn't work for her. She is planning on having surgery in the summer, but is hoping to strengthen her pelvic floor so that she does not make her prolapse worse, and so that the surgery sticks better this go around. , vaginal deliveries with episiotomies, no symptoms with or soon after. Denies constipation, chronic cough. Personal Factors Other Personal Factors That May Effect History of back pain, takes Therapy/Recovery diurectic for blood pressure PT-OP-C Subjective Start: 10/22/18 07:29 Freq: Status: Active Protocol: Document 01/06/19 14:30 AMB (Rec: 01/06/19 15:07 AMB [id number]) OP-PT Subjective Patient Comments Patient Comments Pt returns from her trip to [facility]. PT-OP-I Pelvic Floor Start: 10/22/18 07:29 Freq: Status: Active Protocol: Document 10/22/18 09:45 AMB (Rec: 10/22/18 11:49 AMB [email or web address]) Pelvic Floor Assessment Urine Pelvic Floor Surgery Yes Urinary Symptoms Prolapse Falling Out Feeling/Heavy Other Leakage Causes Denies any leak issues Bowel Bowel Surgery No Bowel Movement Frequency 2x/day [place] Stool Chart Type 1-7 2 Pelvic Clock Pelvic Clock 12-3 Atrophy Pelvic Clock 3-6 Atrophy Pelvic Clock 6-9 Atrophy Pelvic Clock 9-12 Atrophy Prolapse Cystocele Grade 3 Rectocele Grade 1 Perineal Descent Resting Present Bearing Present SEMG (uV) Baseline 3.5 Quick Contraction 15 Recruitment Pattern Poor/Slow SEMG Stability of Rest Good Contraction Ability Voluntary Contraction Weak Voluntary Relaxation Weak Manual Muscle Testing Left 2 Manual Muscle Testing Right 2 Manual Muscle Testing Anterior 1 Manual Muscle Testing Posterior 3 Comments Pelvic Floor Comments Pt tends to cocontract her abdominal muscles with her pelvic floor. Difficult time keeping sensor in for biofeedback makes it less likely biofeedback muscular activitiy was accurate. PT-OP-Q Treatments Start: 10/22/18 07:29 Freq: Status: Active Protocol: Document 01/06/19 14:30 AMB (Rec: 01/07/19 08:39 AMB [email or web address]) Therapeutic Exercises Supine Exercises 3 Supine Exercise Name LTR Reps/Minutes 10 2 Supine Exercise Name supine march Reps/Minutes 10 Comments with TrA and pelvic floor 1 Supine Exercise Name supine 90-90 bilat Reps/Minutes 10 Neuro Re-Education Treatment Other Activities 1 Details quick flicks, 5W 10R, 10W 10R Reps/Duration x15 ea hooklying Comments sEMG with visual feedback for pelvic floor contraction. PT-OP-T Assessment and Plan Start: 10/22/18 07:29 Freq: Status: Active Protocol: Document 01/06/19 14:30 AMB (Rec: 01/07/19 08:39 AMB [email or web address]) Physical Therapy Assessment Goals Two Impairment pelvic floor heaviness Short Term Goal (STG) Valerie will walk for 15 minutes without a subjective feeling of pelvic heaviness. STG Duration MET Pleat Patternmaker Goal (LTG) Valreie will be independent with a HEP to manage her cystocele . LTG Duration MET One Impairment pelvic floor strength Short Term Goal (STG) Valerie will increase her pelvic floor strength to 4/5 as tested in supine. STG Duration 5 weeks Pleat Patternmaker Goal (LTG) Valerie will be able to contract her pelvic floor while in standing without compensating with her abdominals. LTG Duration MET Assessment Summary Assessment Valerie now has a better understanding of how to contract her pelvic floor. Instructed her in importance of pressure management now and after surgery, importance of avoiding high pressure activities- straining sit ups, did encourage her in core stabilization exercises. Physical Therapy Plan Frequency and Duration Frequency of Treatment 1x/Week Duration of Treatment 1 week Plan of Care Start Date 01/06/19 Plan of Care End Date 01/13/19 Discharge Physical Therapy Discharge Reasons Goals Met Discharge Comments Pt is planning on having surgery in February. If she needs to return post-op she would need a new referral.
== END 2019-01-08 09:48 | disposition home or self-care (01) ==
LOC: PHYS 14:30
PROVIDERS: PCP Internal Medicine; Visit Provider Obstetrics & Gynecology
DX: N81.11 Cystocele, midline (principal)
CPT/HCPCS: 97110; 97112; 97161; 97530

== ENCOUNTER → 2020-01-15 10:58 | Outpatient (CLI) | payer OTHER, SELFPAY ==
[2020-01-16 01:49] LABS: COVID19 Sendout Not Detected (Not Detect)
== END ==
PROVIDERS: PCP Internal Medicine; Visit Provider Physician Assistant
DX: Z01.812 Encounter for preprocedural laboratory examination (principal)
CPT/HCPCS: 87635

== ENCOUNTER 2020-01-18 08:48 | Outpatient (CLI) | payer OTHER, SELFPAY ==
[2020-01-18] VITALS (9 sets, daily range): BP systolic 115–156; BP diastolic 63–106; PULSE 58–71; RESP 16; TEMP 36.8; O2SAT 98–100
--- NOTE | 2020-01-18 08:49 | DI.RAD.S_ITS ---
PROCEDURE: PAIN L/S TRANSFORAMINAL INJECT INDICATIONS: SPONDYLOSIS FINDINGS: Fluoroscopic spot filming was performed to verify placement of spinal needles at the L5-S1 level(s), as labeled on the films. Appropriate location(s) of the needle tip(s) was confirmed by injection of iodinated contrast. Dictated by: Sylvester Greco M.D. on 01/18/2020 at 11:30 Approved by: Sylvester Greco M.D. on 01/18/2020 at 11:32
[2020-01-18] MEDS: MIDAZOLAM 5 MG/5 ML VIAL IV (10:23)
[2020-01-18] MEDS: fentaNYL 100 MCG/2 ML INJ 50 MCG IV (10:23)
[2020-01-18] MEDS: IOPAMIDOL 15 ML VIAL 3 ML INJ (10:26)
[2020-01-18] MEDS: DEXAMETHASONE 10 MG/ML VIAL 20 MG INJ (10:27)
[2020-01-18] MEDS: BUPIVACAINE 0.25% (PF) VIAL 2 ML INJ (10:27)
[2020-01-18] MEDS: BETAMETHASONE 30 MG/5 ML MDV 6 MG INJ (10:27)
--- NOTE | 2020-01-18 10:33 | PC.NURSE ---
pt tolerated procedure well, assisted from table to wc, transferred to pre proc room via wc where monitoring was resumed by GLORIA Pickett
--- NOTE | 2020-01-18 10:38 | PM.PROC.1 ---
Procedures Date/Time Date of procedure: 01/18/20 Time of procedure: 10:38 General Procedure description: PREOP DIAGNOSIS 1. FORMAINAL STENOSIS WITH LE SYMPTOMS POST OP DIAGNOSIS 1. FORMAINAL STENOSIS WITH LE SYMPTOMS PROCEDURES 1. FLUOROSCOPICALLY GUIDED CONTRAST CONTROLLED TRANSFORAMINAL EPIDURAL STEROID INJECTION - Left L5/S1 PHYSICIAN: Rios Rodriguez DO INDICATIONS: Valerie is referred by for treatment of Foraminal Stenosis with Left LE Symptoms FINDINGS Foraminal Nerve Root Compression secondary to disc disease and facet hypertrophy DESCRIPTION OF PROCEDURE: Following review of allergy and review of potential side effects and complications, including, but not necessarily limited to, infection, allergic reaction, local tissue breakdown, stroke, temporary or permanent nerve injury, paralysis, and possible , the patient indicated that the patient understood and agreed to proceed. An informed consent document was signed by the patient, witnessed by a nurse, and placed in the patient's chart. Additionally, other treatment options including medications, modalities, and physical therapy were reviewed with the patient. After review of previous anaesthesic history and IV conscious sedation the patient was deemed safe to proceed with todays procedure with IV conscious sedation as ASA class II designation. Safety time-out was performed to confirm patient ID, procedure to be performed and site of procedure. IV sedation was accomplished with a combination of 2mg of Versed and 50mcg of Fentanyl was administered by the RN after DO order, titrated to patient comfort during the course of the procedure while the patient remained responsive to all verbal commands In the prone position following sterile prep and drape of the lumbar region, the Left L5/S1 posterior neuroforamen was identified fluoroscopically. The skin was anesthetized via a 25-gauge 1.5-inch needle with 1% lidocaine solution. At this point, a 25-gauge 3.5-inch spinal needle was atraumatically introduced and advanced under fluoroscopic guidance through the posterior Left L5/S1 neuroforamen to approximately the anterior aspect of the canal. Depth was confirmed on lateral view. Following negative aspiration, injection of approximately 1.5 cc of Isovue 200 under live fluoroscopy in the AP view confirmed excellent flow along the nerve root, into the epidural space without vascular or intrathecal uptake observed Radiological data, including multiple fluoroscopic views of the lumbosacral spine, reveal a spinal needle at the Left L5/S1 posterior neuroforamen. Subsequent views show flow of contrast material flowing superiorly and inferiorly along the nerve root confirming epidural flow. Subsequently, a test dose of 1.5 cc of 1% lidocaine solution was administered and patient was observed for two minutes for signs or symptoms of complications, including abdominal pain, shortness of breath, bilateral upper or lower extremity weakness, nausea and vomiting, prior to steroid injection. At this point, a total of 3cc or 20mg of dexamethasone and 6mg of betamethasone was injected without incident. The procedure tolerated the procedure well without signs or symptoms of complications prior to transfer to the recovery area continued monitoring without incident. The patient was then transferred to the recovery area where they were observed for an appropriate time after the injection. The patient reported a VAS score of 7 prior to the procedure and a post-procedure VAS of 0. Total Fluoroscopy Time: 8 seconds Total Conscious Sedation Time: 24min POST OP INSTRUCTIONS The patient was provided a Pain Log to continue to record their response to the target-specific procedure prior to follow-up visit with their referring physician. Additionally, specific post-injection care instructions and a contact number to our office were provided if concerns arise regarding possible complications associated with the procedure are suspected. Rios Rodriguez DO Complications: none
== END 2020-01-18 11:13 | disposition home or self-care (01) ==
LOC: RAD 08:49
PROVIDERS: PCP Internal Medicine; Referring Provider Physical Medicine & Rehabilitation; Visit Provider Physical Medicine & Rehabilitation
DX: M48.07 Spinal stenosis, lumbosacral region (principal); M51.17 Intervertebral disc disorders with radiculopathy, lumbosacral region
CPT/HCPCS: 64483; 99152; J0702; J1100; J2250; J3010

== ENCOUNTER → 2021-05-08 09:24 | Outpatient (CLI) | payer OTHER, SELFPAY ==
[2021-05-08 14:44] LABS: COVID19 -Nasal RAPID Negative (Negative)
== END ==
PROVIDERS: PCP Internal Medicine; Visit Provider Physical Medicine & Rehabilitation
DX: Z20.822 Contact with and (suspected) exposure to COVID-19 (principal)
CPT/HCPCS: 87635; C9803

== ENCOUNTER 2021-05-10 12:19 | Outpatient (CLI) | payer OTHER, SELFPAY ==
[2021-05-10] VITALS (8 sets, daily range): BP systolic 108–138; BP diastolic 59–78; PULSE 54–64; RESP 12–23; TEMP 37.1; O2SAT 95–100
--- NOTE | 2021-05-10 12:20 | DI.RAD.S_ITS ---
PROCEDURE: PAIN SI JOINT INJECTION INDICATIONS: SACROILIAC DISORDER COMPARISON: None. FINDINGS: Fluoroscopic spot filming was performed to verify placement of needle at inferior aspect of right sacroiliac joint, as labeled on the films. Appropriate location(s) of the needle tip(s) was confirmed by injection of iodinated contrast. IMPRESSION: Fluoro guidance was provided intraoperatively for right sacroiliac joint injection performed by ordering physician. Dictated by: Romero Linda M.D. on 05/10/2021 at 17:18 Approved by: Romero Linda M.D. on 05/10/2021 at 17:19
[2021-05-10] MEDS: fentaNYL 100 MCG/2 ML INJ 50 MCG IV (13:35)
[2021-05-10] MEDS: MIDAZOLAM 5 MG/5 ML VIAL IV (13:35)
[2021-05-10] MEDS: BUPIVACAINE 0.5% (PF) VIAL 30 ML (13:41)
[2021-05-10] MEDS: BETAMETHASONE 30 MG/5 ML MDV 12 MG INJ (13:41)
[2021-05-10] MEDS: IOPAMIDOL 15 ML VIAL 3 ML INJ (13:41)
--- NOTE | 2021-05-10 13:45 | PM.PROC.IR.1 ---
Date/Time/Diagnoses Date of procedure: 05/10/21 Time of procedure: 13:45 Pre-procedure diagnosis: Sacroiliac joint pain/DJD Post-procedure diagnosis: same Procedure Notes Procedure: Fluoroscopically guided contrast controlled right sacroiliac joint injection Indications: Valerie is referred by Dr. Chawla for treatment of right sacroiliac joint DJD Physician: Rios Rodriguez Total Fluoroscopy time (seconds): 5 Total sedation minutes: 7 Complications: none Procedure in detail & Post-procedure care: DESCRIPTION OF PROCEDURE Fluoroscopically guided, contrast controlled right sacroiliac joint injection Following review of allergies and review of potential side effects and complications, including, but not necessarily limited to, infection, allergic reaction, local tissue breakdown, temporary as well as permanent nerve injury, paralysis, stroke and possible , the patient indicated that they understood and agreed to proceed. An informed consent was signed by the patient, witnessed by a nurse, and placed in the patient's chart. Additionally, other treatment options including modalities, medications, and physical therapy were reviewed with the patient. After review of previous anaesthesic history and IV conscious sedation the patient was deemed safe to proceed with today?s procedure with IV conscious sedation as ASA class II designation. Safety time-out was performed to confirm patient ID, procedure to be performed and site of procedure. IV sedation was accomplished with a combination of 2mg of Versed and 50mcg of Fentanyl was administered by the RN after DO order, titrated to patient comfort during the course of the procedure while the patient remained responsive to all verbal commands In the prone position following sterile prep and drape of the pelvic region, the hyper lucency on in the inferior aspect of the sacroiliac joint was identified fluoroscopically the skin was anesthetized be a 25 gauge 1 eventual with approximately 2 cc of 1% lidocaine solution. At this point, a 22 gauge 3 in spinal needle was atraumatically introduced and advanced under fluoroscopic guidance into the inferior aspect of the right sacroiliac joint. Following negative aspiration, approximately 0.3cc of Isovue-300 was injected confirming intra-articular placement without vascular uptake. Radiographic data, including multiple fluoroscopic views of the pelvis, reveals a spinal needle in the sacroiliac joint hyper lucent zone. Subsequent view show flow contrast tear superiorly and inferiorly within the joint capsule without vascular intrathecal uptake. At this point a total of 1 of 0.5% Marcaine was combined with 1cc of 6 mg of betamethasone was injected without incident. The procedure tolerated the procedure well without signs or symptoms of complications prior to transfer to the recovery area continued monitoring without incident. The patient was then transferred to the recovery area with a bur observed for an appropriate time after the injection. The patient reverted a vas score of 7 prior to the procedure and post-procedure vas of 1. POSTOP INSTRUCTIONS The patient was provided with a pain like to continue to record the patient's response to the target specific procedure prior to the patient's follow-up visit with the referring physician. Additionally, specific post injection care instructions and a contact number to our office were provided if concerns arise regarding the possible complications associated with procedure are suspected.
== END 2021-05-10 14:05 | disposition home or self-care (01) ==
PROVIDERS: PCP Internal Medicine; Referring Provider Physical Medicine & Rehabilitation; Visit Provider Physical Medicine & Rehabilitation
DX: M53.3 Sacrococcygeal disorders, not elsewhere classified (principal); M46.1 Sacroiliitis, not elsewhere classified
CPT/HCPCS: 27096; J0702; J2250; J3010

== ENCOUNTER → 2021-09-18 09:42 | Outpatient (CLI) | payer OTHER, SELFPAY ==
[2021-09-18 13:54] LABS: COVID19 -Nasal RAPID Negative (Negative)
== END ==
PROVIDERS: PCP Internal Medicine; Visit Provider Physical Medicine & Rehabilitation
DX: Z20.822 Contact with and (suspected) exposure to COVID-19 (principal)
CPT/HCPCS: 87635; C9803

== ENCOUNTER 2021-09-20 14:05 | Outpatient (CLI) | payer OTHER, SELFPAY ==
[2021-09-20] VITALS (9 sets, daily range): BP systolic 94–130; BP diastolic 55–91; PULSE 61–75; RESP 10–20; TEMP 36.6; O2SAT 94–100
--- NOTE | 2021-09-20 14:06 | DI.RAD.S_ITS ---
PROCEDURE: PAIN L INTERLAMINAR/CAUDAL INJ INDICATIONS: SPONDYLOSIS COMPARISON: [facility], XA, PAIN L/S TRANSFORAMINAL INJECT, 01/18/2020, 9:25. [facility], TRACI, PAIN SI JOINT INJECTION, 05/10/2021, 13:37. FINDINGS: Fluoroscopic spot filming was performed to verify placement of a spinal needle at the L3-L4 level, as labeled on the films. Appropriate location of the needle tip was confirmed by injection of iodinated contrast. IMPRESSION: Intraprocedural examination within normal limits. Dictated by: Shai Herbert M.D. on 09/20/2021 at 15:04 Approved by: Shai Herbert M.D. on 09/20/2021 at 15:05
[2021-09-20] MEDS: fentaNYL 250 MCG/5 ML INJ (14:52)
[2021-09-20] MEDS: MIDAZOLAM 5 MG/5 ML VIAL IV (14:52)
[2021-09-20] MEDS: BUPIVACAINE 0.25% (PF) VIAL 2 ML INJ (14:56)
[2021-09-20] MEDS: IOPAMIDOL 15 ML VIAL 3 ML INJ (14:56)
[2021-09-20] MEDS: BETAMETHASONE 30 MG/5 ML MDV 6 MG INJ (14:56)
[2021-09-20] MEDS: DEXAMETHASONE 10 MG/ML VIAL 20 MG INJ (14:57)
--- NOTE | 2021-09-20 15:07 | P.PCN_ITS ---
Date/Time/Diagnoses Date of procedure: 09/20/21 Time of procedure: 15:07 Pre-procedure diagnosis: 1. HNP WITH RADICULAR FEATURES, 2. MULTILEVEL CENTRAL STENOSIS This procedure is found to meet the Governor's proclamation 20-24.2 regarding non urgent procedures. This patient meets multiple criteria for the procedure including continuing or worsening of significant or severe pain, combined with further deterioration of the patient's condition or overall health as well as delay in treatment would be expected to result in less positive ultimate medical outcome. Therefore the decision to perform the procedure in an outpatient hospital setting is found to be in accordance with guidelines of the proclamation. Post-procedure diagnosis: same Procedure Notes Procedure: 1. FLUOROSCOPICALLY GUIDED CONTRAST CONTROLLED INTERLAMINAR EPIDURAL STEROID INJECTION - L3/4 Indications: Valerie is referred by Dr. Chawla for treatment of Bilateral Foraminal Stenosis L>R LE symptoms. Physician: Rios Rodriguez Total Fluoroscopy time (seconds): 7 Total sedation minutes: 10 Complications: none Procedure in detail & Post-procedure care: FINDINGS Multilevel Central Spinal Stenosis with Nerve Root Compression DESCRIPTION OF PROCEDURE Fluoroscopically guided, contrast-controlled L3/4 translaminar epidural steroid injection. Following review of allergy and review of potential side effects and complications, including, but not necessarily limited to, infection, allergic reaction, local tissue breakdown, temporary as well as permanent nerve injury, paralysis, stroke and possible , the patient indicated that the patient understood and agreed to proceed. An informed consent document was signed by the patient, witnessed by a nurse, and placed in the patient's chart. Additionally, other treatment options including modalities, medications, and physical therapy were reviewed with the patient. After review of previous anaesthesic history and IV conscious sedation the patient was deemed safe to proceed with today?s procedure with IV conscious sedation as ASA class II designation. Safety time-out was performed to confirm patient ID, procedure to be performed and site of procedure. IV sedation was accomplished with a combination of 2mg of Versed and 50mcg of Fentanyl was administered by the RN after DO order, titrated to patient comfort during the course of the procedure while the patient remained responsive to all verbal commands. In the prone position, following sterile prep and drape of the lumbar region, the L3/4 translaminar space was identified fluoroscopically. The skin was anesthetized via a 25-gauge, 1.5-inch needle with 1% lidocaine solution. At this point, a 22-gauge short bevel spinal needle was atraumatically introduced and advanced under fluoroscopic guidance into the region of the L3/4 translaminar space. Depth was confirmed on lateral view. Radiological data, including multiple fluoroscopic views of the lumbar spine, reveal a spinal needle at the L3/4 translaminar space. Lateral views then show placement of the needle in the epidural space. Subsequent views show contrast material flowing superiorly and inferiorly in the epidural space. No vascular or intrathecal uptake is observed. At this point, using loss of resistance technique with saline and air, the epidural space was entered. This was confirmed following negative aspiration with injection of approximately 1.5 cc of Isovue 200, showing excellent epidural flow without vascular or intrathecal uptake. At this point, 1cc of 1% lidocaine solution combined with 3cc or 20mg of dexamethasone and 6mg of betamethasone was injected without incident. The patient tolerated the procedure well without signs or symptoms of complications prior to transfer to the recovery area continued monitoring without incident. The patient was then transferred to the recovery area where they were observed for an appropriate period of time after the injection. The patient reported a VAS score of 6 prior to the procedure and a post- procedure VAS of 0. POST OP INSTRUCTIONS The patient was provided a Pain Log to continue to record their response to the target-specific procedure prior to follow-up visit with their referring physician. Additionally, specific post-injection care instructions and a contact number to our office were provided if concerns arise regarding possible complications associated with the procedure are suspected.
== END 2021-09-20 15:30 | disposition home or self-care (01) ==
PROVIDERS: PCP Internal Medicine; Referring Provider Physical Medicine & Rehabilitation; Visit Provider Physical Medicine & Rehabilitation
DX: M51.16 Intervertebral disc disorders with radiculopathy, lumbar region (principal); M48.061 Spinal stenosis, lumbar region without neurogenic claudication
CPT/HCPCS: 62323; 99152; J0702; J1100; J2250; J3010

== ENCOUNTER → 2021-12-12 11:41 | Outpatient (CLI) | payer OTHER, SELFPAY ==
--- NOTE | 2021-12-12 11:43 | DI.RAD.S_ITS ---
PROCEDURE: XR LUMBAR SPINE MIN 4V INDICATIONS: Lumbosacral spondylosis with facet arthropathy TECHNIQUE: 5 views of the lumbar spine were acquired, including bilateral oblique views. COMPARISON: None. FINDINGS: Bones: 5 nonrib-bearing vertebrae are present. There is 7 mm anterolisthesis of L4 on L5. 1-2 mm retrolisthesis at L1-2, L2-3 and L3-4 levels are also seen. Degenerative endplate changes and bilateral facet arthrosis is seen throughout lumbar spine more prominent at L4-5 and L3-4 levels.. No vertebral body compression fractures. No suspicious bony lesions. Soft tissues: Overlying bowel gas pattern is normal. No suspicious soft tissue calcifications. Oblique images: No pars defects. IMPRESSION: 7 mm anterolisthesis of L4 on L5. 1-2 mm retrolisthesis at L1-2 through L3-4 levels. No acute compression fracture. Degenerative disc disease throughout lumbar spine. No gross pars defects are seen on oblique views. Dictated by: Romero Linda M.D. on 12/12/2021 at 13:21 Approved by: Romero Linda M.D. on 12/12/2021 at 13:22
== END ==
PROVIDERS: PCP Internal Medicine; Referring Provider Physical Medicine & Rehabilitation; Visit Provider Physical Medicine & Rehabilitation
DX: M51.36 Other intervertebral disc degeneration, lumbar region (principal); M47.816 Spondylosis without myelopathy or radiculopathy, lumbar region; M43.16 Spondylolisthesis, lumbar region; M54.17 Radiculopathy, lumbosacral region; M53.3 Sacrococcygeal disorders, not elsewhere classified; M51.26 Other intervertebral disc displacement, lumbar region; M48.062 Spinal stenosis, lumbar region with neurogenic claudication
CPT/HCPCS: 72110; 99214

== ENCOUNTER 2022-02-05 10:01 | Outpatient (CLI) | payer OTHER, SELFPAY ==
[2022-02-05] VITALS (8 sets, daily range): BP systolic 112–175; BP diastolic 59–85; PULSE 55–66; RESP 12–21; TEMP 36.2; O2SAT 97–100
--- NOTE | 2022-02-05 10:02 | DI.RAD.S_ITS ---
PROCEDURE: PAIN L INTERLAMINAR/CAUDAL INJ INDICATIONS: SPONDYLOSIS COMPARISON: None. FINDINGS: Fluoroscopic spot filming was performed to verify placement of spinal needles at the L5-S1 interlaminar space level(s), as labeled on the films. Appropriate location(s) of the needle tip(s) was confirmed by injection of iodinated contrast. IMPRESSION: Geff needle tip in the L5-S1 interlaminar space for translaminar epidural steroid injection. Dictated by: Lisette Alberto MD, PhD on 02/05/2022 at 13:37 Approved by: Lisette Alberto MD, PhD on 02/05/2022 at 13:37
[2022-02-05 11:22] LABS: COVID19 -Nasal RAPID Negative (Negative)
[2022-02-05] MEDS: MIDAZOLAM 2 MG/2 ML VIAL IV (12:07)
[2022-02-05] MEDS: BETAMETHASONE 30 MG/5 ML MDV 6 MG INJ (12:11)
[2022-02-05] MEDS: BUPIVACAINE 0.25% (PF) VIAL 2 ML INJ (12:11)
[2022-02-05] MEDS: DEXAMETHASONE 10 MG/ML VIAL 20 MG INJ (12:12)
[2022-02-05] MEDS: IOPAMIDOL 15 ML VIAL 3 ML INJ (12:12)
--- NOTE | 2022-02-05 12:23 | PM.PROC.IR.1 ---
Date/Time/Diagnoses Date of procedure: 02/05/22 Time of procedure: 12:23 Pre-procedure diagnosis: 1. HNP WITH RADICULAR FEATURES, 2. MULTILEVEL CENTRAL STENOSIS, Post-procedure diagnosis: same Procedure Notes Procedure: 1. FLUOROSCOPICALLY GUIDED CONTRAST CONTROLLED INTERLAMINAR EPIDURAL STEROID INJECTION - L5/S1 Indications: Valerie is referred by Dr. Chawla for treatment of Bilateral Foraminal Stenosis L>R LE symptoms. Physician: Rios Rodriguez Total Fluoroscopy time (seconds): 7 Total sedation minutes: 10 Complications: none Procedure in detail & Post-procedure care: FINDINGS Multilevel Central Spinal Stenosis with Nerve Root Compression DESCRIPTION OF PROCEDURE Fluoroscopically guided, contrast-controlled L5/S1 translaminar epidural steroid injection. Following review of allergy and review of potential side effects and complications, including, but not necessarily limited to, infection, allergic reaction, local tissue breakdown, temporary as well as permanent nerve injury, paralysis, stroke and possible , the patient indicated that the patient understood and agreed to proceed. An informed consent document was signed by the patient, witnessed by a nurse, and placed in the patient's chart. Additionally, other treatment options including modalities, medications, and physical therapy were reviewed with the patient. After review of previous anaesthesic history and IV conscious sedation the patient was deemed safe to proceed with today?s procedure with IV conscious sedation as ASA class II designation. Safety time-out was performed to confirm patient ID, procedure to be performed and site of procedure. IV sedation was accomplished with a combination of 2mg of Versed administered by the RN after DO order, titrated to patient comfort during the course of the procedure while the patient remained responsive to all verbal commands. In the prone position, following sterile prep and drape of the lumbar region, the L5/S1 translaminar space was identified fluoroscopically. The skin was anesthetized via a 25-gauge, 1.5-inch needle with 1% lidocaine solution. At this point, a 22-gauge short bevel spinal needle was atraumatically introduced and advanced under fluoroscopic guidance into the region of the L5/S1 translaminar space. Depth was confirmed on lateral view. Radiological data, including multiple fluoroscopic views of the lumbar spine, reveal a spinal needle at the L5/S1 translaminar space. Lateral views then show placement of the needle in the epidural space. Subsequent views show contrast material flowing superiorly and inferiorly in the epidural space. No vascular or intrathecal uptake is observed. At this point, using loss of resistance technique with saline and air, the epidural space was entered. This was confirmed following negative aspiration with injection of approximately 1.5cc of Isovue 200, showing excellent epidural flow without vascular or intrathecal uptake. At this point, 1 cc of 1% lidocaine solution combined with 3cc or 20mg of dexamethasone and 6mg of betamethasone was injected without incident. The patent tolerated the procedure without signs of symptoms of complications prior to transfer to the recovery area for further monitoring. The patient was then transferred to the recovery area where they were observed for an appropriate period of time after the injection. The patient reported a VAS score of 6 prior to the procedure and a post-procedure VAS of 0. POST OP INSTRUCTIONS The patient was provided a Pain Log to continue to record their response to the target-specific procedure prior to follow-up visit with their referring physician. Additionally, specific post-injection care instructions and a contact number to our office were provided if concerns arise regarding possible complications associated with the procedure are suspected.
== END 2022-02-05 12:38 | disposition home or self-care (01) ==
LOC: RAD 10:01
PROVIDERS: PCP Internal Medicine; Referring Provider Physical Medicine & Rehabilitation; Visit Provider Physical Medicine & Rehabilitation
DX: M51.17 Intervertebral disc disorders with radiculopathy, lumbosacral region (principal); M48.07 Spinal stenosis, lumbosacral region; Z20.822 Contact with and (suspected) exposure to COVID-19
CPT/HCPCS: 62323; 87635; 99152; J0702; J1100; J2250

== ENCOUNTER 2022-07-16 13:56 | Outpatient (CLI) | payer OTHER, SELFPAY ==
[2022-07-16] VITALS (9 sets, daily range): BP systolic 122–156; BP diastolic 57–78; PULSE 60–72; RESP 9–20; TEMP 36.1; O2SAT 96–100
--- NOTE | 2022-07-16 13:57 | DI.RAD.S_ITS ---
PROCEDURE: PAIN SI JOINT INJECTION VERONICA COMPARISON: None. INDICATIONS: SACROILIAC DISORDER FINDINGS: Access needles in the inferior margin of the bilateral sacroiliac joints. Injection of small amount of iodinated contrast demonstrates axis needle tips are within the SI joint spaces. IMPRESSION: Access needles in the bilateral SI joints for steroid joint injection. Dictated by: Lisette Alberto MD, PhD on 07/16/2022 at 16:10 Approved by: Lisette Alberto MD, PhD on 07/16/2022 at 16:10
[2022-07-16] MEDS: MIDAZOLAM 2 MG/2 ML VIAL IV (15:20)
[2022-07-16] MEDS: IOPAMIDOL 15 ML VIAL 3 ML INJ (15:25)
[2022-07-16] MEDS: BUPIVACAINE 0.5% (PF) VIAL 5 ML INJ (15:25)
[2022-07-16] MEDS: BETAMETHASONE 30 MG/5 ML MDV 12 MG INJ (15:25)
[2022-07-16] MEDS: LIDOCAINE 1% (PF) 5 ML INJ (15:26)
--- NOTE | 2022-07-16 15:43 | P.PCN_ITS ---
Date/Time/Diagnoses Date of procedure: 07/16/22 Time of procedure: 15:43 Pre-procedure diagnosis: Sacroiliac joint pain/DJD Post-procedure diagnosis: same Procedure Notes Procedure: Fluoroscopic guided contrast controlled bilateral sacroiliac joint injection Indications: Valerie is referred by Dr. Chawla for treatment of bilateral sacroiliac joint DJD Physician: Rios Rodriguez Total Fluoroscopy time (seconds): 26 Total sedation minutes: 18 Complications: none Procedure in detail & Post-procedure care: Description of procedure Fluoroscopic guided, contrast controlled bilateral sacroiliac joint injection Following review of allergies and review of potential side effects and complications, including, but not necessarily limited to, infection, allergic reaction, local tissue breakdown, temporary as well as permanent nerve injury, paralysis, stroke and possible , the patient indicated that they understood and agreed to proceed. An informed consent was signed by the patient, witnessed by a nurse, and placed in the patient's chart. Additionally, other treatment options including modalities, medications, and physical therapy were reviewed with the patient. After review of previous anaesthesic history and IV conscious sedation the patient was deemed safe to proceed with today?s procedure with IV conscious sedation as ASA class II designation. Safety time-out was performed to confirm patient ID, procedure to be performed and site of procedure. IV sedation was accomplished with a combination of 2mg Versed were administered by the RN after DO order, titrated to patient comfort during the course of the procedure while the patient remained responsive to all verbal commands In the prone position following sterile prep and drape of the pelvic region, the hyper lucency on in the inferior aspect of the sacroiliac joint was identified fluoroscopically the skin was anesthetized be a 25 gauge 1.5 inch needle with approximately 2cc of 1% lidocaine solution. At this point, a 22 gauge 3 in spin al needle was atraumatically introduced and advanced under fluoroscopic guidance into the inferior aspect of the right sacroiliac joint. Following negative aspiration, approximately 0.3cc of Isovue-300 was injected confirming intra- articular placement without vascular uptake. Radiographic data, including multiple fluoroscopic views of the pelvis, reveals a spinal needle in the sacroiliac joint hyper lucent zone. Subsequent view show flow contrast tear superiorly and inferiorly within the joint capsule without vascular intrathecal uptake. At this point a total of 1cc of 0.5% Marcaine was combined with 1cc of 6mg of betamethasone was injected without incident. Attention was then refocused the left sacroiliac joint where the procedure was replicated. The procedure tolerated the procedure well without signs or symptoms of complications prior to transfer to the recovery area continued monitoring without incident. The patient was then transferred to the recovery area with a bur observed for an appropriate time after the injection. The patient reverted a vas score of 7 prior to the procedure and post-procedure vas of 1. Postop instructions The patient was provided with a pain like to continue to record the patient's response to the target specific procedure prior to the patient's follow-up visit with the referring physician. Additionally, specific post injection care instructions and a contact number to our office were provided if concerns arise regarding the possible complications associated with procedure are suspected.
== END 2022-07-16 16:00 | disposition home or self-care (01) ==
PROVIDERS: PCP Internal Medicine; Referring Provider Physical Medicine & Rehabilitation; Visit Provider Physical Medicine & Rehabilitation
DX: M53.3 Sacrococcygeal disorders, not elsewhere classified (principal); M46.1 Sacroiliitis, not elsewhere classified
CPT/HCPCS: 27096; 99152; J0702; J2250

== ENCOUNTER 2022-10-29 09:10 | Outpatient (CLI) | payer OTHER, SELFPAY ==
[2022-10-29] VITALS (8 sets, daily range): BP systolic 122–136; BP diastolic 69–81; PULSE 58–75; RESP 11–21; TEMP 36.6; O2SAT 99–100
--- NOTE | 2022-10-29 | DI.RAD.S_ITS ---
PROCEDURE: PAIN L/SI FACET INJ/BLK 1STL INDICATIONS: SPONDYLOSIS COMPARISON: None. FINDINGS: Fluoroscopic spot filming was performed to verify placement of spinal needles at the lumbosacral level(s), as labeled on the films. Appropriate location(s) of the needle tip(s) was confirmed by injection of iodinated contrast. IMPRESSION: Needle placement as above Dictated by: Erin Jaramillo M.D. on 10/29/2022 at 15:00 Transcribed by: MAG on 10/29/2022 at 15:00 Approved by: Erin Jaramillo M.D. on 10/29/2022 at 15:24
--- NOTE | 2022-10-29 09:11 | DI.RAD.S_ITS ---
PROCEDURE: PAIN SI JOINT INJECTION INDICATIONS: SACROILIAC DISORDER COMPARISON: [facility], , PAIN SI JOINT INJECTION, 05/10/2021, 13:37. FINDINGS: Fluoroscopic spot filming was performed to verify placement of spinal needles at the sacroiliac level(s), as labeled on the films. Appropriate location(s) of the needle tip(s) was confirmed by injection of iodinated contrast. IMPRESSION: Needle placement at the sacroiliac joint. Dictated by: Erin Jaramillo M.D. on 10/29/2022 at 14:57 Transcribed by: MAG on 10/29/2022 at 15:00 Approved by: Erin Jaramillo M.D. on 10/29/2022 at 15:24
[2022-10-29] MEDS: MIDAZOLAM 2 MG/2 ML VIAL IV (10:19)
[2022-10-29] MEDS: BETAMETHASONE 30 MG/5 ML MDV 12 MG INJ (10:23)
[2022-10-29] MEDS: IOPAMIDOL 15 ML VIAL 3 ML INJ (10:24)
[2022-10-29] MEDS: BUPIVACAINE 0.5% (PF) 10 ML VIAL 5 ML INJ (10:24)
--- NOTE | 2022-10-29 11:21 | P.PCN_ITS ---
Date/Time/Diagnoses Date of procedure: 10/29/22 Time of procedure: 11:21 Pre-procedure diagnosis: 1. FACET ARTHROPATHY, 2. AXIAL LBP, 3. MULTILEVEL DDD Post-procedure diagnosis: same Procedure Notes Procedure: 1. FLUOROSCOPICALLY GUIDED CONTRAST CONTROLLED FACET JOINT INJECTIONS RIGHT L5/S1 Indications: Valerie is referred by Dr. Chawla for treatment of Axial LBP Physician: Rios Rodriguez Total Fluoroscopy time (seconds): 8 Total sedation minutes: 15 Complications: none Procedure in detail & Post-procedure care: FINDINGS Multilevel Facet Arthropathy with Clinically significant axial LBP DESCRIPTION OF PROCEDURE Fluoroscopically guided, contrast-controlled right L5/S1 facet joint injections. Following review of allergy and review of potential side effects and complica tions, including, but not necessarily limited to, infection, allergic reaction, local tissue breakdown, stroke, temporary or permanent nerve injury, paralysis, and possible , the patient indicated that the patient understood and agreed to proceed. An informed consent document was signed by the patient, witnessed by a nurse, and placed in the patient's chart. Additionally, other treatment op tions including medications, modalities, and physical therapy were reviewed with the patient. After review of previous anaesthesic history and IV conscious sedation the patient was deemed safe to proceed with today?s procedure with IV conscious sedation as ASA class II designation. Safety time-out was performed to confirm patient ID, procedure to be performed and site of procedure. IV sedation was accomplished with a combination of 2mg of Versed was administered by the RN after DO order, titrated to patient comfort during the course of the procedure while the patient remained responsive to all verbal commands. In the prone position, following sterile prep and drape of the lumbar region, the posterior aspect of the right L4/5 facet joints were identified fluoroscopically. The skin was anesthetized via a 25-gauge 1.5-inch needle with 1% lidocaine solution into the corresponding facet joints. At this point, a 22- gauge 3.5-inch spinal needle was atraumatically introduced and advanced under fluoroscopic guidance into the corresponding facet joints. Following negative aspiration, injections of approximately 0.2-cc of Isovue 200 confirmed interarticular placement without vascular uptake. Radiological data, including multiple fluoroscopic views of the lumbosacral spine, reveal a spinal needle at the right L4/5 facet joints. Subsequent views show flow of contrast material both superiorly and inferiorly within the joint space without vascular or intrathecal uptake. At this point, a total of 0.5cc including a mixture of 0.25cc Marcaine and 0.25cc betamethasone was injected without complication into each of the corresponding facet joints. The procedure tolerated the procedure well without signs or symptoms of complications prior to transfer to the recovery area continued monitoring without incident. The patient was then transferred to the recovery area where they were observed for an appropriate period of time after the injection. The patient reported a VAS score of 7 prior to the procedure and a post-procedure VAS of 0. POST OP INSTRUCTIONS The patient was provided a Pain Log to continue to record their response to the target-specific procedure prior to follow-up visit with their referring physician. Additionally, specific post-injection care instructions and a contact number to our office were provided if concerns arise regarding possible complications associated with the procedure are suspected.
--- NOTE | 2022-10-29 11:22 | PM.PROC.IR.1 ---
Date/Time/Diagnoses Date of procedure: 10/29/22 Time of procedure: 11:22 Pre-procedure diagnosis: Sacroiliac joint pain/DJD Post-procedure diagnosis: same Procedure Notes Procedure: Fluoroscopically guided contrast controlled right sacroiliac joint injection Indications: Valerie is referred by Dr. Chawla for treatment of right sacroiliac joint DJD Physician: Rios Rodriguez Total Fluoroscopy time (seconds): 8 Total sedation minutes: 15 Complications: none Procedure in detail & Post-procedure care: DESCRIPTION OF PROCEDURE Fluoroscopically guided, contrast controlled right sacroiliac joint injection Following review of allergies and review of potential side effects and complications, including, but not necessarily limited to, infection, allergic reaction, local tissue breakdown, temporary as well as permanent nerve injury, paralysis, stroke and possible , the patient indicated that they understood and agreed to proceed. An informed consent was signed by the patient, witnessed by a nurse, and placed in the patient's chart. Additionally, other treatment options including modalities, medications, and physical therapy were reviewed with the patient. After review of previous anaesthesic history and IV conscious sedation the patient was deemed safe to proceed with today?s procedure with IV conscious sedation as ASA class II designation. Safety time-out was performed to confirm patient ID, procedure to be performed and site of procedure. IV sedation was accomplished with a combination of 2mg of Versed was administered by the RN after DO order, titrated to patient comfort during the course of the procedure while the patient remained responsive to all verbal commands In the prone position following sterile prep and drape of the pelvic region, the hyper lucency on in the inferior aspect of the sacroiliac joint was identified fluoroscopically the skin was anesthetized be a 25 gauge 1 eventual with approximately 2 cc of 1% lidocaine solution. At this point, a 22 gauge 3 in spinal needle was atraumatically introduced and advanced under fluoroscopic guidance into the inferior aspect of the right sacroiliac joint. Following negative aspiration, approximately 0.3cc of Isovue-300 was injected confirming intra-articular placement without vascular uptake. Radiographic data, including multiple fluoroscopic views of the pelvis, reveals a spinal needle in the sacroiliac joint hyper lucent zone. Subsequent view show flow contrast tear superiorly and inferiorly within the joint capsule without vascular intrathecal uptake. At this point a total of 1cc of 0.5% Marcaine was combined with 1cc of 6 mg of betamethasone was injected without incident. The procedure tolerated the procedure well without signs or symptoms of complications prior to transfer to the recovery area continued monitoring without incident. The patient was then transferred to the recovery area with a bur observed for an appropriate time after the injection. The patient reverted a vas score of 7 prior to the procedure and post-procedure vas of 1. POSTOP INSTRUCTIONS The patient was provided with a pain like to continue to record the patient's response to the target specific procedure prior to the patient's follow-up visit with the referring physician. Additionally, specific post injection care instructions and a contact number to our office were provided if concerns arise regarding the possible complications associated with procedure are suspected.
== END 2022-10-29 10:54 | disposition home or self-care (01) ==
LOC: RAD 09:11
PROVIDERS: PCP Internal Medicine; Referring Provider Physical Medicine & Rehabilitation; Visit Provider Physical Medicine & Rehabilitation
DX: M53.3 Sacrococcygeal disorders, not elsewhere classified (principal); M47.817 Spondylosis without myelopathy or radiculopathy, lumbosacral region; M51.37 Other intervertebral disc degeneration, lumbosacral region; M46.1 Sacroiliitis, not elsewhere classified
CPT/HCPCS: 27096; 64493; 99152; J0702; J2250

== ENCOUNTER 2023-02-06 10:11 | Outpatient (CLI) | payer OTHER, SELFPAY ==
[2023-02-06] VITALS (9 sets, daily range): BP systolic 124–149; BP diastolic 63–74; PULSE 63–74; RESP 12–19; TEMP 36.1; O2SAT 98–100
--- NOTE | 2023-02-06 10:13 | DI.RAD.S_ITS ---
PROCEDURE: PAIN L INTERLAMINAR/CAUDAL INJ INDICATIONS: SPONDYLOSIS COMPARISON: [facility], XA, PAIN L INTERLAMINAR/CAUDAL INJ, 02/05/2022, 12:12. FINDINGS: Fluoroscopic spot filming was performed to verify placement of spinal needles overlying L5-S1 level(s), as labeled on the films. Appropriate location(s) of the needle tip(s) was confirmed by injection of iodinated contrast. IMPRESSION: L5-S1 needle placement. Dictated by: Elisa New M.D. on 02/06/2023 at 14:47 Approved by: Elisa New M.D. on 02/06/2023 at 14:47
[2023-02-06] MEDS: MIDAZOLAM 2 MG/2 ML VIAL IV (11:02)
[2023-02-06] MEDS: BUPIVACAINE 0.25% (PF) VIAL 2 ML INJ (11:08)
[2023-02-06] MEDS: IOPAMIDOL 15 ML VIAL 3 ML INJ (11:08)
[2023-02-06] MEDS: BETAMETHASONE 30 MG/5 ML MDV 6 MG INJ (11:09)
[2023-02-06] MEDS: DEXAMETHASONE 10 MG/ML VIAL 20 MG INJ (11:09)
--- NOTE | 2023-02-06 11:18 | P.PCN_ITS ---
Date/Time/Diagnoses Date of procedure: 02/06/23 Time of procedure: 11:18 Pre-procedure diagnosis: 1. HNP WITH RADICULAR FEATURES, 2. MULTILEVEL CENTRAL STENOSIS, Post-procedure diagnosis: same Procedure Notes Procedure: 1. FLUOROSCOPICALLY GUIDED CONTRAST CONTROLLED INTERLAMINAR EPIDURAL STEROID INJECTION - L5/S1 Indications: Valerie is referred by Dr. Chawla for treatment of Bilateral Foraminal Stenosis L>R LE symptoms. Physician: Rios Rodriguez Total Fluoroscopy time (seconds): 10 Total sedation minutes: 12 Complications: none Procedure in detail & Post-procedure care: FINDINGS Multilevel Central Spinal Stenosis with Nerve Root Compression DESCRIPTION OF PROCEDURE Fluoroscopically guided, contrast-controlled L5/S1 translaminar epidural steroid injection. Following review of allergy and review of potential side effects and complications, including, but not necessarily limited to, infection, allergic reaction, local tissue breakdown, temporary as well as permanent nerve injury, paralysis, stroke and possible , the patient indicated that the patient understood and agreed to proceed. An informed consent document was signed by the patient, witnessed by a nurse, and placed in the patient's chart. Additionally, other treatment options including modalities, medications, and physical therapy were reviewed with the patient. After review of previous anaesthesic history and IV conscious sedation the patient was deemed safe to proceed with today?s procedure with IV conscious sedation as ASA class II designation. Safety time-out was performed to confirm patient ID, procedure to be performed and site of procedure. IV sedation was accomplished with a combination of 2mg of Versed administered by the RN after DO order, titrated to patient comfort during the course of the procedure while the patient remained responsive to all verbal commands. In the prone position, following sterile prep and drape of the lumbar region, the L5/S1 translaminar space was identified fluoroscopically. The skin was anesthetized via a 25-gauge, 1.5-inch needle with 1% lidocaine solution. At this point, a 22-gauge short bevel spinal needle was atraumatically introduced a nd advanced under fluoroscopic guidance into the region of the L5/S1 translaminar space. Depth was confirmed on lateral view. Radiological data, including multiple fluoroscopic views of the lumbar spine, reveal a spinal needle at the L5/S1 translaminar space. Lateral views then show placement of the needle in the epidural space. Subsequent views show contrast material flowing superiorly and inferiorly in the epidural space. No vascular or intrathecal uptake is observed. At this point, using loss of resistance technique with saline and air, the epidural space was entered. This was confirmed following negative aspiration with injection of approximately 1.5cc of Isovue 200, showing excellent epidural flow without vascular or intrathecal uptake. At this point, 1 cc of 1% lidocaine solution combined with 3cc or 20mg of dexamethasone and 6mg of betamethasone was injected without incident. The patent tolerated the procedure without signs of symptoms of complications prior to transfer to the recovery area for further monitoring. The patient was then transferred to the recovery area where they were observed for an appropriate period of time after the injection. The patient reported a VAS score of 6 prior to the procedure and a post-procedure VAS of 0. POST OP INSTRUCTIONS The patient was provided a Pain Log to continue to record their response to the target-specific procedure prior to follow-up visit with their referring physician. Additionally, specific post-injection care instructions and a contact number to our office were provided if concerns arise regarding possible complications associated with the procedure are suspected.
== END 2023-02-06 11:32 | disposition home or self-care (01) ==
LOC: RAD 10:12
PROVIDERS: PCP Internal Medicine; Referring Provider Physical Medicine & Rehabilitation; Visit Provider Physical Medicine & Rehabilitation
DX: M51.17 Intervertebral disc disorders with radiculopathy, lumbosacral region (principal); M48.07 Spinal stenosis, lumbosacral region
CPT/HCPCS: 62323; 99152; J0702; J1100; J2250; J3490

== ENCOUNTER 2023-05-06 09:41 | Outpatient (CLI) | payer OTHER, SELFPAY ==
[2023-05-06] VITALS (9 sets, daily range): BP systolic 115–137; BP diastolic 55–70; PULSE 56–78; RESP 10–20; TEMP 36.3; O2SAT 98–100
--- NOTE | 2023-05-06 09:44 | DI.RAD.S_ITS ---
PROCEDURE: PAIN SI JOINT INJECTION INDICATIONS: SACROILILAC DISORDER COMPARISON: [facility], , PAIN SI JOINT INJECTION, 10/29/2022, 10:24. FINDINGS: On these intraprocedural images, there is a spinal needle seen overlying the inferior aspect of the right sacroiliac joint. Appropriate position of the tip of the needle was confirmed by injection of a small amount of iodinated contrast. IMPRESSION: Successful sacroiliac joint injection. Dictated by: Shai Herbert M.D. on 05/06/2023 at 12:06 Approved by: Shai Herbert M.D. on 05/06/2023 at 12:07
[2023-05-06] MEDS: MIDAZOLAM 2 MG/2 ML VIAL IV (10:42)
[2023-05-06] MEDS: BETAMETHASONE 30 MG/5 ML MDV 6 MG INJ (10:47)
[2023-05-06] MEDS: BUPIVACAINE 0.5% (PF) 10 ML VIAL 2 ML INJ (10:47)
[2023-05-06] MEDS: iopamidoL 15 ML VIAL 3 ML INJ (10:47)
--- NOTE | 2023-05-06 10:56 | PM.PROC.IR.1 ---
Date/Time/Diagnoses Date of procedure: 05/06/23 Time of procedure: 10:56 Pre-procedure diagnosis: Sacroiliac joint pain/DJD Post-procedure diagnosis: same Procedure Notes Procedure: Fluoroscopically guided contrast controlled right sacroiliac joint injection Indications: Valerie is referred by Dr. Chawla for treatment of right sacroiliac joint DJD Physician: Rios Rodriguez Total Fluoroscopy time (seconds): 11 Total sedation minutes: 10 Complications: none Procedure in detail & Post-procedure care: DESCRIPTION OF PROCEDURE Fluoroscopically guided, contrast controlled right sacroiliac joint injection Following review of allergies and review of potential side effects and complications, including, but not necessarily limited to, infection, allergic reaction, local tissue breakdown, temporary as well as permanent nerve injury, paralysis, stroke and possible , the patient indicated that they understood and agreed to proceed. An informed consent was signed by the patient, witnessed by a nurse, and placed in the patient's chart. Additionally, other treatment options including modalities, medications, and physical therapy were reviewed with the patient. After review of previous anaesthesic history and IV conscious sedation the patient was deemed safe to proceed with today?s procedure with IV conscious sedation as ASA class II designation. Safety time-out was performed to confirm patient ID, procedure to be performed and site of procedure. IV sedation was accomplished with a combination of 2mg of Versed was administered by the RN after DO order, titrated to patient comfort during the course of the procedure while the patient remained responsive to all verbal commands In the prone position following sterile prep and drape of the pelvic region, the hyper lucency on in the inferior aspect of the sacroiliac joint was identified fluoroscopically the skin was anesthetized be a 25 gauge 1 eventual with approximately 2 cc of 1% lidocaine solution. At this point, a 22 gauge 3 in spinal needle was atraumatically introduced and advanced under fluoroscopic guidance into the inferior aspect of the right sacroiliac joint. Following negative aspiration, approximately 0.3cc of Isovue-300 was injected confirming intra-articular placement without vascular uptake. Radiographic data, including multiple fluoroscopic views of the pelvis, reveals a spinal needle in the sacroiliac joint hyper lucent zone. Subsequent view show flow contrast tear superiorly and inferiorly within the joint capsule without vascular intrathecal uptake. At this point a total of 1cc of 0.5% Marcaine was combined with 1cc of 6 mg of betamethasone was injected without incident. The procedure tolerated the procedure well without signs or symptoms of complications prior to transfer to the recovery area continued monitoring without incident. The patient was then transferred to the recovery area with a bur observed for an appropriate time after the injection. The patient reverted a vas score of 7 prior to the procedure and post-procedure vas of 1. POSTOP INSTRUCTIONS The patient was provided with a pain like to continue to record the patient's response to the target specific procedure prior to the patient's follow-up visit with the referring physician. Additionally, specific post injection care instructions and a contact number to our office were provided if concerns arise regarding the possible complications associated with procedure are suspected.
== END 2023-05-06 11:16 | disposition home or self-care (01) ==
PROVIDERS: PCP Internal Medicine; Referring Provider Physical Medicine & Rehabilitation; Visit Provider Physical Medicine & Rehabilitation
DX: M53.3 Sacrococcygeal disorders, not elsewhere classified (principal); M46.1 Sacroiliitis, not elsewhere classified
CPT/HCPCS: 27096; 99152; J0702; J2250

== ENCOUNTER 2023-09-11 09:28 | Outpatient (CLI) | payer OTHER, SELFPAY ==
[2023-09-11] VITALS (10 sets, daily range): BP systolic 126–158; BP diastolic 66–113; PULSE 60–82; RESP 16–21; TEMP 36.7; O2SAT 97–100
--- NOTE | 2023-09-11 10:15 | DI.RAD.S_ITS ---
PROCEDURE: PAIN L/S TRANSFORAM INJECT VERONICA COMPARISON: None. INDICATIONS: SPONDYLOIS FINDINGS: Fluoroscopic guidance utilized for an L4-5 epidural steroid injection. The needle tip projects over the right L4-5 level. IMPRESSION: Fluoroscopic guidance utilized for an L4-5 epidural steroid injection. Dictated by: Hoang Hackett M.D. on 09/11/2023 at 14:12 Approved by: Hoang Hackett M.D. on 09/11/2023 at 14:12
[2023-09-11] MEDS: MIDAZOLAM 2 MG/2 ML VIAL IV (11:07)
[2023-09-11] MEDS: BUPIVACAINE 0.25% (PF) VIAL 2 ML INJ (11:12)
[2023-09-11] MEDS: iopamidoL 15 ML VIAL 3 ML INJ (11:12)
[2023-09-11] MEDS: DEXAMETHASONE 10 MG/ML VIAL 20 MG INJ (11:13)
[2023-09-11] MEDS: BETAMETHASONE 30 MG/5 ML MDV 12 MG INJ (11:13)
--- NOTE | 2023-09-11 11:42 | PM.PROC.IR.1 ---
Date/Time/Diagnoses Date of procedure: 09/11/23 Time of procedure: 11:42 Pre-procedure diagnosis: 1. FORAMINAL STENOSIS WITH LE SYMPTOMS Procedure Notes Procedure: 1. FLUOROSCOPICALLY GUIDED CONTRAST CONTROLLED TRANSFORAMINAL EPIDURAL STEROID INJECTION - BILATERAL L4/5 TFESI Indications: Valerie is referred by Dr. Chawla for treatment of Foraminal Stenosis with bilateral LE Symptoms Physician: Rios Rodriguez Total Fluoroscopy time (seconds): 34 Total sedation minutes: 27 Complications: none Procedure in detail & Post-procedure care: FINDINGS Foraminal Nerve Root Compression secondary to disc disease and facet hypertrophy DESCRIPTION OF PROCEDURE Following review of allergy and review of potential side effects and complications, including, but not necessarily limited to, infection, allergic reaction, local tissue breakdown, stroke, temporary or permanent nerve injury, paralysis, and possible , the patient indicated that the patient understood and agreed to proceed. An informed consent document was signed by the patient, witnessed by a nurse, and placed in the patient's chart. Additionally, other treatment options including medications, modalities, and physical therapy were reviewed with the patient. After review of previous anaesthesic history and IV conscious sedation the patient was deemed safe to proceed with today?s procedure with IV conscious sedation as ASA class II designation. Safety time-out was performed to confirm patient ID, procedure to be performed and site of procedure. IV sedation was accomplished with a combination of 2mg of Versed was administered by the RN after DO order, titrated to patient comfort during the course of the procedure while the patient remained responsive to all verbal commands In the prone position following sterile prep and drape of the lumbar region, the right L4/5 posterior neuroforamen was identified fluoroscopically. The skin was anesthetized via a 25-gauge 1.5-inch needle with 1% lidocaine solution. At this point, a 25-gauge 3.5-inch spinal needle was atraumatically introduced and advanced under fluoroscopic guidance through the posterior right L4/5 neuroforamen to approximately the anterior aspect of the canal. Depth was confirmed on lateral view. Following negative aspiration, injection of approximately 1.5cc of Isovue 200 under live fluoroscopy in the AP view confirmed excellent flow along the nerve root, into the epidural space without vascular or intrathecal uptake observed Radiological data, including multiple fluoroscopic views of the lumbosacral spine, reveal a spinal needle at the right L4/5 posterior neuroforamen. Subsequent views show flow of contrast material flowing superiorly and inferiorly along the nerve root confirming epidural flow. Subsequently, a test dose of 1.5cc of 1% lidocaine solution was administered and patient was observed for two minutes for signs or symptoms of complications, including abdominal pain, shortness of breath, bilateral upper or lower extremity weakness, nausea and vomiting, prior to steroid injection. At this point, a total of 2cc or 10mg of dexamethasone and 6mg betamethasone was injected without incident. Attention was then refocused to the left L4/5 level where the identical procedure was replicated. The procedure tolerated the procedure well without signs or symptoms of complications prior to transfer to the recovery area continued monitoring without incident. The patient was then transferred to the recovery area where they were observed for an appropriate time after the injection. The patient reported a VAS score of 7 prior to the procedure and a post-procedure VAS of 0. POST OP INSTRUCTIONS The patient was provided a Pain Log to continue to record their response to the target-specific procedure prior to follow-up visit with their referring physician. Additionally, specific post-injection care instructions and a contact number to our office were provided if concerns arise regarding possible complications associated with the procedure are suspected.
--- NOTE | 2023-09-11 11:53 | PC.NURSE ---
Patient received post injection with RLE numbness and weakness. Assisted 2P max assist to recliner from . Dr. Rodriguez aware. Care continued until improved.
--- NOTE | 2023-09-11 13:35 | PC.NURSE ---
Patient's RLE weakness and numbness resolved and her mobility returned to her baseline at 1325. Patient assisted to bathroom before she was DC'd.
== END 2023-09-11 13:30 | disposition home or self-care (01) ==
LOC: RAD 09:28
PROVIDERS: PCP Internal Medicine; Referring Provider Physical Medicine & Rehabilitation; Visit Provider Physical Medicine & Rehabilitation
DX: M48.061 Spinal stenosis, lumbar region without neurogenic claudication (principal); M51.16 Intervertebral disc disorders with radiculopathy, lumbar region; M47.26 Other spondylosis with radiculopathy, lumbar region
CPT/HCPCS: 64483; 99152; 99153; J0702; J1100; J2250; J3490

== ENCOUNTER 2024-06-03 09:36 | Outpatient (CLI) | payer OTHER, SELFPAY ==
[2024-06-03] VITALS (9 sets, daily range): BP systolic 115–160; BP diastolic 58–71; PULSE 50–61; RESP 16–20; TEMP 36.8; O2SAT 95–100
--- NOTE | 2024-06-03 10:15 | DI.RAD.S_ITS ---
PROCEDURE: PAIN L/S FACET INJ/BLK 1ST VERONICA INDICATIONS: BILATERAL L4-L5 S1 MBB-LA COMPARISON: None. FINDINGS: Fluoroscopic spot filming was performed to verify placement of spinal needles at the bilateral L4, L5 and S1 level(s), as labeled on the films. Appropriate location(s) of the needle tip(s) was confirmed by injection of iodinated contrast. IMPRESSION: Intra procedural examination demonstrating appropriate positions of the needles. Dictated by: Claudio Wang M.D. on 06/03/2024 at 12:03 Approved by: Claudio Wang M.D. on 06/03/2024 at 12:06
[2024-06-03] MEDS: MIDAZOLAM 2 MG/2 ML VIAL IV (11:08)
[2024-06-03] MEDS: LIDOCAINE 1% 20 ML 5 ML INJ (11:12)
[2024-06-03] MEDS: iopamidoL 15 ML VIAL 3 ML INJ (11:13)
[2024-06-03] MEDS: BUPIVACAINE 0.5% (PF) 10 ML VIAL 5 ML INJ (11:13)
--- NOTE | 2024-06-03 11:31 | PM.PROC.IR.1 ---
Date/Time/Diagnoses Date of procedure: 06/03/24 Time of procedure: 11:31 Pre-procedure diagnosis: 1. FACET ARTHROPATHY Post-procedure diagnosis: same Procedure Notes Procedure: 1. BILATERAL- L4, L5 and S1 DIAGNOSTIC MB BLOCKS with LA Anesthetic Indications: Valerie is referred by Dr. Chawla for treatment of Bilateral Axial LBP. Physician: Rios Rodriguez Total Fluoroscopy time (seconds): 11 Total sedation minutes: 18 Complications: none Procedure in detail & Post-procedure care: DESCRIPTION OF PROCEDURE Fluoroscopically guided, contrast-controlled bilateral L4, L5 and S1 medial branch blocks with 0.5cc of 0.5% Marcaine. Following review of allergy and review of potential side effects and complications, including, but not necessarily limited to, infection, allergic reaction, local tissue breakdown, nerve injury, paralysis, stroke and possible , the patient indicated that the patient understood and agreed to proceed. An informed consent document was signed by the patient, witnessed by a nurse, and placed in the patient's chart. After review of previous anaesthesic history and IV conscious sedation the patient was deemed safe to proceed with today's procedure with IV conscious sedation as ASA class II designation. Safety time-out was performed to confirm patient ID, procedure to be performed and site of procedure. IV sedation was accomplished with a combination of 2mg of Versed was administered by the RN after DO order, titrated to patient comfort during the course of the procedure while the patient remained responsive to all verbal commands In the prone position, following sterile prep and drape of the lumbar region, the right L4, L5 and S1 anatomical location of the medial branch of the dorsal ramus was identified fluoroscopically. Subsequently an anesthetic skin wheal using 1% lidocaine solution was initiated at each of the anatomical spots. Subsequently then a 22-gauge 3.5-inch spinal needle was atraumatically introduced and advanced under fluoroscopic guidance at each of the corresponding sites at the right L4, L5 and S1 MB. After negative aspiration, 0.2cc of Isovue 200 was injected, confirming placement without vascular or intrathecal uptake. Subsequently then 0.5cc of 0.5% Marcaine solution was injected at each of the corresponding sites at the right L4, L5 and S1 medial branch locations. The identical procedure was replicated on the left. The patient tolerated the procedure well without signs or symptoms of complications prior to transfer to the recovery area continued monitoring without incident. Post-procedure, the patient was monitored initiating provocative activities to measure the amount of relief from block of the facetogenic pain. The patient reported a VAS of 7 prior to the procedure and a post-procedure VAS of 1. It has been a pleasure to assist in the diagnostic and therapeutic care of your patient. POST OP INSTRUCTIONS The patient was provided with a Pain Log to complete over the next several hours and subsequent days prior to the patient's follow up with the ordering physician. If the patient has government affairs specialist relief to the solution applied, then they may be a candidate for medial branch rhizotomy. The patient is aware, was provided, once again, with a Pain Log and will follow up with the referring physician for review and clinical correlation
== END 2024-06-03 11:45 | disposition home or self-care (01) ==
LOC: RAD 09:36
PROVIDERS: PCP Internal Medicine; Referring Provider Physical Medicine & Rehabilitation; Visit Provider Physical Medicine & Rehabilitation
DX: M47.816 Spondylosis without myelopathy or radiculopathy, lumbar region (principal); M47.817 Spondylosis without myelopathy or radiculopathy, lumbosacral region
CPT/HCPCS: 64493; 64494; 99152; J2250

== ENCOUNTER → 2024-06-16 12:38 | Outpatient (CLI) | payer OTHER, SELFPAY ==
--- NOTE | 2024-06-16 12:40 | DI.RAD.S_ITS ---
PROCEDURE: XR LUMBAR SPINE MIN 4V INDICATIONS: lumbar facet arthropathy TECHNIQUE: 5 views of the lumbar spine were acquired, including bilateral oblique views. COMPARISON: [facility], , XR LUMBAR SPINE MIN 4V, 12/12/2021, 11:37. FINDINGS: Five non rib-bearing lumbar vertebrae are present. Diffuse osseous demineralization. The vertebral body heights are preserved. No pars defects on the oblique views. Multilevel intervertebral disc height loss, most conspicuous at L3-L4 and L4-L5. Re-identified grade 1 anterolisthesis of L4 on L5. Minimal 1-2 mm retrolisthesis at the other levels, similar to the 12/12/2021 lumbar spine x-ray. Moderate-severe facet arthropathy at the L4-L5 and L5-S1 levels. Multilevel hypertrophy of the spinous processes, which can be seen with Baastrup's disease. IMPRESSION: Moderate-severe multilevel lumbar facet arthropathy and osteoarthrosis, similar to the 12/12/2021 exam. Dictated by: Stuart Esquivel M.D. on 06/16/2024 at 17:24 Approved by: Stuart Esquivel M.D. on 06/16/2024 at 17:26
--- NOTE | 2024-06-16 12:40 | DI.RAD.S_ITS ---
PROCEDURE: XR HIP W PEL IF DONE VERONICA MIN 4V INDICATIONS: Right hip decreases ROM TECHNIQUE: AP pelvis with lateral view(s) of the bilateral hip(s). COMPARISON: None. FINDINGS: Diffuse osseous demineralization. No acute fracture or dislocation. No femoral head osteonecrosis. Mild-moderate bilateral hip osteoarthritis. Moderate bilateral sacroiliac joint, lower lumbar, and pubic symphysis osteoarthritis. IMPRESSION: Mild-moderate bilateral hip osteoarthritis. Dictated by: Stuart Esquivel M.D. on 06/16/2024 at 16:43 Approved by: Stuart Esquivel M.D. on 06/16/2024 at 16:44
== END ==
PROVIDERS: PCP Internal Medicine; Referring Provider Physical Medicine & Rehabilitation; Visit Provider Physical Medicine & Rehabilitation
DX: M16.0 Bilateral primary osteoarthritis of hip (principal); M47.816 Spondylosis without myelopathy or radiculopathy, lumbar region; M47.817 Spondylosis without myelopathy or radiculopathy, lumbosacral region; M43.16 Spondylolisthesis, lumbar region; M54.17 Radiculopathy, lumbosacral region; M48.062 Spinal stenosis, lumbar region with neurogenic claudication; Z96.651 Presence of right artificial knee joint; M53.3 Sacrococcygeal disorders, not elsewhere classified; M51.26 Other intervertebral disc displacement, lumbar region; Z68.31 Body mass index [BMI] 31.0-31.9, adult
CPT/HCPCS: 72110; 73522; 99213

== ENCOUNTER 2024-07-20 15:00 | Outpatient (CLI) | payer OTHER, SELFPAY ==
[2024-07-20] VITALS (10 sets, daily range): BP systolic 131–170; BP diastolic 62–87; PULSE 69–76; RESP 16–21; TEMP 36.7; O2SAT 97–100
--- NOTE | 2024-07-20 15:01 | DI.RAD.S_ITS ---
PROCEDURE: PAIN LATERAL BRANCH BLOCK BI INDICATIONS: Lumbar Spondylosis COMPARISON: None. FINDINGS/IMPRESSION: Fluoroscopic spot filming was performed to verify placement of spinal needles at the bilateral L3-L4, L4-L5, L5-S1 level(s), as labeled on the films. Appropriate location(s) of the needle tip(s) was confirmed by injection of iodinated contrast. Dictated by: Anuel Fernandez M.D. on 07/23/2024 at 13:13 Approved by: Anuel Fernandez M.D. on 07/23/2024 at 13:14
[2024-07-20] MEDS: MIDAZOLAM 2 MG/2 ML VIAL IV (16:18)
[2024-07-20] MEDS: iopamidoL 15 ML VIAL 3 ML INJ (16:24)
[2024-07-20] MEDS: LIDOCAINE 2% INJ SDV 5ML 1 ML INJ (16:25)
[2024-07-20] MEDS: LIDOCAINE 1% 20 ML 5 ML INJ (16:26)
--- NOTE | 2024-07-20 16:58 | PM.PROC.IR.1 ---
Date/Time/Diagnoses Date of procedure: 07/20/24 Time of procedure: 16:58 Pre-procedure diagnosis: 1. FACET ARTHROPATHY Post-procedure diagnosis: same Procedure Notes Procedure: 1. BILATERAL- L4, L5 and S1 DIAGNOSTIC MB BLOCKS with SA Anesthetic Indications: Valerie is referred by Dr. Chawla for treatment of Bilateral Axial LBP. Physician: Rios Rodriguez Total Fluoroscopy time (seconds): 17 Total sedation minutes: 22 Complications: none Procedure in detail & Post-procedure care: DESCRIPTION OF PROCEDURE Fluoroscopically guided, contrast-controlled bilateral L4, L5 and S1 medial branch blocks with 0.5cc of 2% Lidocaine. Following review of allergy and review of potential side effects and complications, including, but not necessarily limited to, infection, allergic reaction, local tissue breakdown, nerve injury, paralysis, stroke and possible , the patient indicated that the patient understood and agreed to proceed. An informed consent document was signed by the patient, witnessed by a nurse, and placed in the patient's chart. After review of previous anaesthesic history and IV conscious sedation the patient was deemed safe to proceed with today's procedure with IV conscious sedation as ASA class II designation. Safety time-out was performed to confirm patient ID, procedure to be performed and site of procedure. IV sedation was accomplished with a combination of 2mg of Versed was administered by the RN after DO order, titrated to patient comfort during the course of the procedure while the patient remained responsive to all verbal commands In the prone position, following sterile prep and drape of the lumbar region, the right L4, L5 and S1 anatomical location of the medial branch of the dorsal ramus was identified fluoroscopically. Subsequently an anesthetic skin wheal using 1% lidocaine solution was initiated at each of the anatomical spots. Subsequently then a 22-gauge 3.5-inch spinal needle was atraumatically introduced and advanced under fluoroscopic guidance at each of the corresponding sites at the right L4, L5 and S1 MB. After negative aspiration, 0.2cc of Isovue 200 was injected, confirming placement without vascular or intrathecal uptake. Subsequently then 0.5cc of 2% Lidocaine solution was injected at each of the corresponding sites at the right L4, L5 and S1 medial branch locations. The identical procedure was replicated on the left. The patient tolerated the procedure well without signs or symptoms of complications prior to transfer to the recovery area continued monitoring without incident. Post-procedure, the patient was monitored initiating provocative activities to measure the amount of relief from block of the facetogenic pain. The patient reported a VAS of 7 prior to the procedure and a post-procedure VAS of 1. It has been a pleasure to assist in the diagnostic and therapeutic care of your patient. POST OP INSTRUCTIONS The patient was provided with a Pain Log to complete over the next several hours and subsequent days prior to the patient's follow up with the ordering physician. If the patient has automobile appraiser relief to the solution applied, then they may be a candidate for medial branch rhizotomy. The patient is aware, was provided, once again, with a Pain Log and will follow up with the referring physician for review and clinical correlation
== END 2024-07-20 17:00 | disposition home or self-care (01) ==
PROVIDERS: PCP Internal Medicine; Referring Provider Physical Medicine & Rehabilitation; Visit Provider Physical Medicine & Rehabilitation
DX: M47.816 Spondylosis without myelopathy or radiculopathy, lumbar region (principal); M47.817 Spondylosis without myelopathy or radiculopathy, lumbosacral region
CPT/HCPCS: 64493; 64494; 99152; 99153; J2250

== ENCOUNTER 2024-11-11 10:31 | Outpatient (CLI) | payer OTHER, SELFPAY ==
[2024-11-11] VITALS (17 sets, daily range): BP systolic 115–152; BP diastolic 57–70; PULSE 51–69; RESP 14–20; TEMP 36.6; O2SAT 98–100
[2024-11-11] MEDS: MIDAZOLAM 2 MG/2 ML VIAL IV (12:08)
[2024-11-11] MEDS: LIDOCAINE 1% 20 ML 5 ML INJ (12:16)
[2024-11-11] MEDS: BUPIVACAINE 0.5% (PF) 10 ML VIAL 5 ML INJ (12:17)
[2024-11-11] MEDS: MIDAZOLAM 2 MG/2 ML VIAL 1 MG IV ×2 (12:19→12:33)
[2024-11-11] MEDS: LIDOCAINE 1% (PF) 5 ML INJ (12:44)
--- NOTE | 2024-11-11 13:04 | P.PCN_ITS ---
Date/Time/Diagnoses Date of procedure: 11/11/24 Time of procedure: 13:04 Pre-procedure diagnosis: 1. RECALCITRANT FACET ARTHROPATHY Post-procedure diagnosis: same Procedure Notes Procedure: 1. BILATERAL L4 AND L5 MEDIAL BRANCH RADIOFREQUENCY NEUROTOMY AND S1 DORSAL RAMUS BRANCH RADIOFREQUENCY NEUROTOMY Indications: Valerie is referred by Dr. Chawla for treatment of facet arthropathy. Physician: Rios Rodriguez Total Fluoroscopy time (seconds): 22 Total sedation minutes: 50 Complications: none Procedure in detail & Post-procedure care: DESCRIPTION OF PROCEDURE Bilateral L4 and L5 medial branch radiofrequency neurotomy and bilateral S1 dorsal ramus radiofrequency neurotomy under fluoroscopy with conscious sedation. The patient is well known to this clinic having undergone previous facet injections with good but temporary relief. The patient has experienced appropriate, concordant relief with previous facet and median branch blocks but the patient's pain has been recalcitrant to further conservative measures. Therefore, based upon the patient's relief and persistent symptoms, the patient is considered an appropriate candidate for facet rhizotomy. All of the patient's questions regarding the risks versus benefits of the procedure, including, but not limited to, bleeding, infection, temporary as well as lasting nerve injury, paralysis, stroke, and , as well treatment alternatives were answered to satisfaction. After obtaining informed consent, denial of pertinent drug allergies, as well as being made aware of the potential risks of bleeding, infection, spinal cord trauma, paralysis, temporary and permanent nerve damage, seizure, stroke, and possible , the patient was brought to the fluoroscopy suite and positioned prone on the fluoroscopy table. The lumbar region was prepped in usual sterile fashion and covered with a fenestrated drape in the usual sterile fashion. Appropriate monitors applied including pulse oximeter, pulse, and blood pressure for regular monitoring throughout the procedure. After review of previous anaesthesic history and IV conscious sedation the patient was deemed safe to proceed with today's procedure with IV conscious sedation as ASA class II designation. Safety time-out was performed to confirm patient ID, procedure to be performed and site of procedure. IV sedation was accomplished with a combination of 4mg of Versed administered by the RN after DO order, titrated to patient comfort during the course of the procedure while the patient remained responsive to all verbal commands. After local infiltration using 1% lidocaine, under fluoroscopic guidance, a 10- cm RF insulated needle with a 10-mm active tip was positioned parallel to the junction of the right sacral ala and the superior articulating process where the S1 dorsal ramus resides. Needle placement was confirmed with motor stimulation of .5v on the right which produced local stimulation without radicular component. The stimulation was then increased to 2v with, once again, only local multifidus stimulation without radicular component. The needle was then removed and the identical procedure was performed along the length of the right L5 medial branch with motor stimulation at .7v on the right. The identical procedure was once again performed along the length of the right L4 medial branch with motor stimulation of .5v on the right. The medial branches were then anesthetized with 0.5% Marcaine. This was then followed by two discreet lesions performed at 80 degrees Celsius for 90 seconds each. The identical procedure was repeated on the left. The patient tolerated the procedure well without signs or symptoms of complications prior to transfer to the recovery area continued monitoring without incident. The patient was then transferred to the recovery area where they were observed for an appropriate period of time after the injection. The patient reported a VAS score of 8 prior to the procedure and a post-procedure VAS of 1. POST OP INSTRUCTIONS The patient was provided a Pain Log to continue to record the patient's response to the target-specific procedure prior to the patient's follow-up visit with the referring physician. Additionally, specific post-injection care instructions and a contact number to our office were provided if concerns arise regarding possible complications associated with the procedure are suspected.
== END 2024-11-11 13:25 | disposition home or self-care (01) ==
PROVIDERS: PCP Internal Medicine; Referring Provider Physical Medicine & Rehabilitation; Visit Provider Physical Medicine & Rehabilitation
DX: M47.816 Spondylosis without myelopathy or radiculopathy, lumbar region (principal); M47.817 Spondylosis without myelopathy or radiculopathy, lumbosacral region
CPT/HCPCS: 64635; 64636; 99152; 99153; J2250

== ENCOUNTER 2025-04-26 09:36 | Outpatient (CLI) | payer OTHER, SELFPAY ==
[2025-04-26] VITALS (8 sets, daily range): BP systolic 131–169; BP diastolic 62–73; PULSE 53–67; RESP 11–18; TEMP 36.4; O2SAT 96–100
[2025-04-26] MEDS: MIDAZOLAM 2 MG/2 ML VIAL IV (10:45)
[2025-04-26] MEDS: LIDOCAINE 1% 20 ML INJ (10:47)
[2025-04-26] MEDS: BETAMETHASONE 30 MG/5 ML MDV 12 MG INJ (10:48)
[2025-04-26] MEDS: BETAMETHASONE 30 MG/5 ML MDV 6 MG INJ (10:52)
--- NOTE | 2025-04-26 11:04 | PM.PROC.IR.1 ---
Date/Time/Diagnoses Date of procedure: 04/26/25 Time of procedure: 11:04 Pre-procedure diagnosis: 1. FORAMINAL STENOSIS WITH LE SYMPTOMS Procedure Notes Procedure: 1. FLUOROSCOPICALLY GUIDED CONTRAST CONTROLLED TRANSFORAMINAL EPIDURAL STEROID INJECTION - BILATERAL L4/5 TFESI Indications: Valerie is referred by Dr. Chawla for treatment of Foraminal Stenosis with bilateral LE Symptoms Physician: Rios Rodriguez Total Fluoroscopy time (seconds): 20 Total sedation minutes: 14 Complications: none Procedure in detail & Post-procedure care: FINDINGS Foraminal Nerve Root Compression secondary to disc disease and facet hypertrophy DESCRIPTION OF PROCEDURE Following review of allergy and review of potential side effects and complications, including, but not necessarily limited to, infection, allergic reaction, local tissue breakdown, stroke, temporary or permanent nerve injury, paralysis, and possible , the patient indicated that the patient understood and agreed to proceed. An informed consent document was signed by the patient, witnessed by a nurse, and placed in the patient's chart. Additionally, other treatment options including medications, modalities, and physical therapy were reviewed with the patient. After review of previous anaesthesic history and IV conscious sedation the patient was deemed safe to proceed with today?s procedure with IV conscious sedation as ASA class II designation. Safety time-out was performed to confirm patient ID, procedure to be performed and site of procedure. IV sedation was accomplished with a combination of 2mg of Versed was administered by the RN after DO order, titrated to patient comfort during the course of the procedure while the patient remained responsive to all verbal commands In the prone position following sterile prep and drape of the lumbar region, the right L4/5 posterior neuroforamen was identified fluoroscopically. The skin was anesthetized via a 25-gauge 1.5-inch needle with 1% lidocaine solution. At this point, a 25-gauge 3.5-inch spinal needle was atraumatically introduced and advanced under fluoroscopic guidance through the posterior right L4/5 neuroforamen to approximately the anterior aspect of the canal. Depth was confirmed on lateral view. Following negative aspiration, injection of approximately 1.5cc of Isovue 200 under live fluoroscopy in the AP view confirmed excellent flow along the nerve root, into the epidural space without vascular or intrathecal uptake observed Radiological data, including multiple fluoroscopic views of the lumbosacral spine, reveal a spinal needle at the right L4/5 posterior neuroforamen. Subsequent views show flow of contrast material flowing superiorly and inferiorly along the nerve root confirming epidural flow. Subsequently, a test dose of 1.5cc of 1% lidocaine solution was administered and patient was observed for two minutes for signs or symptoms of complications, including abdominal pain, shortness of breath, bilateral upper or lower extremity weakness, nausea and vomiting, prior to steroid injection. At this point, a total of 2cc or 10mg of dexamethasone and 6mg betamethasone was injected without incident. Attention was then refocused to the left L4/5 level where the identical procedure was replicated. The procedure tolerated the procedure well without signs or symptoms of complications prior to transfer to the recovery area continued monitoring without incident. The patient was then transferred to the recovery area where they were observed for an appropriate time after the injection. The patient reported a VAS score of 7 prior to the procedure and a post-procedure VAS of 1. POST OP INSTRUCTIONS The patient was provided a Pain Log to continue to record their response to the target-specific procedure prior to follow-up visit with their referring physician. Additionally, specific post-injection care instructions and a contact number to our office were provided if concerns arise regarding possible complications associated with the procedure are suspected.
== END 2025-04-26 11:15 | disposition home or self-care (01) ==
PROVIDERS: PCP Internal Medicine; Referring Provider Physical Medicine & Rehabilitation; Visit Provider Physical Medicine & Rehabilitation
DX: M48.061 Spinal stenosis, lumbar region without neurogenic claudication (principal); M51.16 Intervertebral disc disorders with radiculopathy, lumbar region; M47.26 Other spondylosis with radiculopathy, lumbar region
CPT/HCPCS: 64483; 99152; J0702; J1100; J2250